=== PATIENT | female | born 1975 | race Caucasian/White ===

== ENCOUNTER 2022-06-21 11:39 | Outpatient (CLI) | payer OTHER, SELFPAY ==
[2022-06-21 10:15] LABS: Cholesterol* 165 mg/dL (90-199)
[2022-06-21 10:16] LABS: Glucose* 107 mg/dL (60-115); HDL Cholesterol* 55 mg/dL (>=50); LDL Cholesterol Calculated 94 mg/dL (<100); Triglycerides* 80 mg/dL (40-149)
[2022-06-21 11:31] LABS: Free T4 Free Thyroxine* 0.95 ng/dL (0.70-1.85)
== END 2022-06-21 11:40 | disposition home or self-care (01) ==
PROVIDERS: PCP Family Medicine; Visit Provider Family Medicine
DX: Z01.419 Encounter for gynecological examination (general) (routine) without abnormal findings (principal); E03.9 Hypothyroidism, unspecified; Z13.6 Encounter for screening for cardiovascular disorders
CPT/HCPCS: 80061; 82947; 84439; 84443

== ENCOUNTER 2022-09-16 12:50 | Outpatient (CLI) | payer OTHER, SELFPAY ==
--- NOTE | 2022-09-16 13:00 | CRLHL7_ITS ---
For Patients: As a result of the Century Cures Act, medical imaging exams and procedure reports are released immediately into your electronic medical record. You may view this report before your referring provider. If you have questions, please contact your health care provider. BILATERAL SCREENING MAMMOGRAM WITH COMPUTER-AIDED DETECTION AND TOMOSYNTHESIS TECHNIQUE: CC and MLO views were obtained. These mammographic images have been obtained using full-field digital technique. These mammographic images were interpreted with the benefit of computer-aided detection. Breast Tomosynthesis was used in this interpretation. COMPARISON FILM: 05/14/22, 05/09/20, 03/28/19. FINDINGS: The breasts are heterogeneously dense, which may obscure small masses IMPRESSION: There is no radiographic evidence for malignancy. ASSESSMENT: BI-RADS Category 2: Benign RECOMMENDATION: Routine screening mammogram in 1 year. A lay language report of this examination will be provided to the patient. Navneet Francis M.D. Diagnostic Radiologist [email or web address] DEBORAH/Dictated by: Navneet Francis MD @ 09/17/2022 11:52:00 AM (Electronically Signed)
== END 2022-09-16 12:51 | disposition home or self-care (01) ==
LOC: MAMMO 12:51
PROVIDERS: PCP Family Medicine; Visit Provider Family Medicine
DX: Z12.31 Encounter for screening mammogram for malignant neoplasm of breast (principal); R92.2 Inconclusive mammogram
CPT/HCPCS: 77063; 77067

== ENCOUNTER 2023-06-29 07:24 | Outpatient (CLI) | payer OTHER, SELFPAY | END 2023-06-29 07:25 | disposition home or self-care (01) | PROVIDERS: PCP Family Medicine; Referring Provider Family Medicine; Visit Provider Family Medicine | DX: Z00.00 Encounter for general adult medical examination without abnormal findings (principal); E03.9 Hypothyroidism, unspecified; Z13.1 Encounter for screening for diabetes mellitus | CPT/HCPCS: 82947; 84443 ==

== ENCOUNTER 2023-10-03 14:20 | Outpatient (CLI) | payer BC, SELFPAY ==
--- OUTSIDE RECORDS SUMMARY | 2023-10-03 14:24 | XMS_ITS | Clinical Summary ---
Author Name Unknown Organization [employer] [facility] [email or web address] [facility] Address [place], [place] [address] Care Team Providers Care Road Design Engineer Name Role Phone Pcp, No Primary Care Provider Unavailabl e Pcp, No Unavailable Unavailable Allergies No known active allergies Medications Medication Sig Dispensed Refills Start Date End Date Status levothyroxine (SYNTHROID) 150 mcg tablet Take 150 mcg by mouth once daily. 0 09/24/2021 Active fluticasone (50 mcg per actuation) nasal solution (FLONASE)Indications: Nasal polyps Inhale 1 [place] into affected nostril(s) once daily. 16 g 11 12/07/2021 Active Active Problems Problem Noted Date Diagnosed Date Unspecified hypothyroidism 05/07/2008 Encounters Date Type Department Care Team Description 07/28/2023 Lab Requisition [facility] [phone] Rubi Reilly MD from Last 3 Months Family History Medical History Relation Name Comments Good Health Father Diabetes Maternal Grandmother Hyperlipidemia Mother Thyroid Disease Mother hypothyroid Cancer Son leukemia Relation Name Status Comments Father Maternal Grandmother Mother Son Social History Tobacco Use Types Packs/Day Years Used Date Smoking Tobacco: Never Smokeless Tobacco: Never Tobacco Cessation:Counseling Given: Yes Alcohol Use Standard Drinks/Week Comments Yes 0 (1 standard drink = 0.6 oz pur e alcohol) Social Connections Answer Date Recorded Frequency of Communication with Friends and Fami ly Not on file 12/07/2021 Sex and Gender Information Value Date Recorded Sex Assigned at Female 12/05/2021 1:08 PM CDT Gender Identity Female 12/05/2021 1:08 PM CDT Sexual Orientation Straight 12/05/2021 1: 08 PM CDT Obstetrics History Para Term AB IAB SAB Ectopic Multiple Livin g Live Births 3 3 3 Date Outcome GA Total Labor Labor/2nd/3rd Weight Sex Delivery Anes PTL Mona A1 A5 Name Cl in Para Para Para Last Filed Vital Signs Vital Sign Reading Time Taken Comments Blood Pressure 160/87 12/01/2022 5:38 PM CDT Pulse 89 12/01/2022 5:38 PM CDT Temperature 36.9 ??C (98.4 ??F) 12/01/2022 5:38 PM CD T Respiratory Rate 21 12/01/2022 5:38 PM CDT Oxygen Saturation 98% 12/01/2022 5:38 PM CDT Inhaled Oxygen Concentration - - Weight 89.2 kg (196 lb 9.6 oz) 12/01/2022 5:38 P M CDT Height 169.5 cm (5' 6.75) 05/03/2008 2:52 PM CD T Body Mass Index - - Plan of Treatment Health Maintenance Due Date Last Done Comments Tdap 1986 Depression screening for age 12+ 1987 HIV for age 15-65 1990 BMI (ht and wt on same day) for age 18+ 1993 Hepatitis C screening for age 18-79 1993 Tetanus booster 1995 Colonoscopy through age 75 2020 Lipids for age 45-75 2020 09/17/2008, 09/17/20 08 Mammogram for age 45-75 2020 COVID-19 vaccine series ( season) 2023 08/29/2021, 11/26/2020, 10/29/2020 Influenza for age 9-49 05/20/2023 Pap test for age 21-65 07/28/2026 3, 07/28/2023, 01/09/2018, Additional history exists Pneumococcal series for age 6-64 Aged Out No longer eligible based on patient's age to complete this topic Procedures Procedure Name Priority Date/Time Associated Diagnosis Comments LAB TRACKING EVENT Routine 07/28/2023 9: 54 AM QUALITATIVE FIELD COORDINATOR SEALER DRY CELL THIN PREP PAP SCREEN IMAGED Routine 07/28/2023 9:40 AM QUALITATIVE FIELD COORDINATOR HPV THIN PREP Routine 07/28/2023 9:40 AM QUALITATIVE FIELD COORDINATOR from Last 3 Months Results * LAB TRACKING EVENT (07/28/2023 9:54 AM QUALITATIVE FIELD COORDINATOR) Other (Other) Client Collect / Unknown 07/28/2023 9:54 AM QUALITATIVE FIELD COORDINATOR 07/28/2023 3:28 PM QUALITATIVE FIELD COORDINATOR Rubi Reilly MD LAB BILL O NLY [facility] [address] [place] [address], * SEALER DRY CELL THIN PREP PAP SCREEN IMAGED (07/28/2023 9:40 AM QUALITATIVE FIELD COORDINATOR) Case Report Gynecologic Cytology Report ? Case: [id number] ? Authorizing Provider: ??Rubi Reilly ?Collected: ? 07/28/2023 0940 ? MD Mary ? Ordering Location: ? [facility] ?Received: ?07/29/2023 1238 ? First Screen: ?Pam Coronel ? Rescreen: ?Bacdavi, Diana ? Specimen: ?SEALER DRY CELL ThinPrep Vial Screening, Cervical ? 08/08/2023 2:38 PM QUALITATIVE FIELD COORDINATOR [facility] [employer] [facility]- ENTRAL LABORATORY INTERPRETATION/ RESULT NEGATIVE FOR INTRAEPITHELIAL LESION OR MALIGNANCY (NIL) (none) 08/08/2023 2:38 PM QUALITATIVE FIELD COORDINATOR [facility]- ENTRAL LABORATORY IMEN ADEQUACY Satisfactory for evaluation No endocervical component seen 08/08/2023 2:38 PM QUALITATIVE FIELD COORDINATOR [facility] [employer] [facility] ENTRAL LABORATORY HPV REQUEST HPV and PAP 08/08/2023 2:38 PM QUALITATIVE FIELD COORDINATOR [facility] [employer] [facility]- ENTRAL LABORATORY Date of LMP 07/12/2023 08/08/2023 2:38 PM QUALITATIVE FIELD COORDINATOR [facility] ENTRAL LABORATORY Last Pap Date 01/09/2018 08/08/2023 2:38 PM QUALITATIVE FIELD COORDINATOR [facility] ENTRAL LABORATORY Last Pap Result NIL 2:38 PM QUALITATIVE FIELD COORDINATOR [facility] ENTRAL LABORATORY Abnormal Pap or [place] Bx in last 5 years No 08/08/2023 2:38 PM QUALITATIVE FIELD COORDINATOR [facility]- ENTRAL LABORATORY Menstrual Status Abnormal bleeding 08/08/2023 2:38 PM QUALITATIVE FIELD COORDINATOR [facility] ENTRAL LABORATORY [place] Bx Done Today No 08/08/2023 2:38 PM QUALITATIVE FIELD COORDINATOR [facility] EN[facility]AL LABOR[facility]ORY Additional Information 08/08/2023 2:38 PM QUALITATIVE FIELD COORDINATOR [facility] EN[facility] LABORATORY Comment: Interpreted at [facility] [employer] [facility], Central Laboratory - [address], [place] [address] Automated Review Successful 08/08/2023 2:38 PM QUALITATIVE FIELD COORDINATOR [facility] ENTRAL LABORATORY Comment:Specimen processed s uccessfully by automated plastic design applier device, ThinPrep Imaging System, [employer] ANCILLARY TESTING SEALER DRY CELL HPV Ordered, Please see separate report 08/08/2023 2:38 PM QUALITATIVE FIELD COORDINATOR [facility] ENTRNE LABORATORY Note The pap test is a screening technique, not a diagnostic procedure. It is used primarily to screen for squamous cancers and precursor lesions. Published studies have shown that it is subject to both false negative and false positive results. The pap test should not be used as the sole means to diagnose or exclude pre-malignant and malignant lesions. 08/08/2023 2:38 PM QUALITATIVE FIELD COORDINATOR [facility] LABORATORY Other (Cervical) 07/28/2023 9:40 AM QUALITATIVE FIELD COORDINATOR 07/29/2023 12:38 PM QUALITATIVE FIELD COORDINATOR Rubi Reilly MD PATHOLOGY/ CYTOLOGY Performing Organization Address [facility] de Phone Number [facility] [address] [place] [address], * HPV HIGH RISK (07/28/2023 9:40 AM QUALITATIVE FIELD COORDINATOR) TYPE 16 Negative Negative 08/03/2023 1:56 PM QUALITATIVE FIELD COORDINATOR [facility] TRAL LABORATORY TYPE 18 Negative Negative 08/03/2023 1:56 PM QUALITATIVE FIELD COORDINATOR [facility] TRAL LABORATORY OTHER HIGH RISK TYPES Negative Negative 08/03/2023 1:56 PM QUALITATIVE FIELD COORDINATOR [facility] TRAL LABORATORY Other (Cervical) 07/28/2023 9:40 AM QUALITATIVE FIELD COORDINATOR 07/29/2023 12:38 PM QUALITATIVE FIELD COORDINATOR Narrative [facility] - 08/03/2023 1:56 PM QUALITATIVE FIELD COORDINATOR HPV types 16, 18, 31, 33, 35, 39, 45, 51, 52, 56, 58, 59, 66 and 68 DNA were undetectable or below the pre-set threshold. Methodology: Christian Anna 4800 HPV Test Rubi Reilly MD MICROBIOLO GY Performing Organization Address [facility] Co de Phone Number [facility] [address] [place] [address], [place] [address], [place] from Last [address] Design Engineer Relationship Specialty Start Date End Date Pcp, No . PCP - General 05/30/12 Pcp, No . 05/30/12
--- NOTE | 2023-10-03 14:40 | CRLHL7_ITS ---
For Patients: As a result of the Century Cures Act, medical imaging exams and procedure reports are released immediately into your electronic medical record. You may view this report before your referring provider. If you have questions, please contact your health care provider. BILATERAL DIGITAL SCREENING MAMMOGRAM WITH TOMOSYNTHESIS AND COMPUTER-AIDED DETECTION CLINICAL HISTORY: Routine screening exam. COMPARISON: 09/16/2022, 05/14/2021, 05/09/2020, 03/28/2019. TECHNIQUE: Digital mammogram in CC and MLO projections including computer-aided detection (CAD). Tomosynthesis utilized. BREAST COMPOSITION: The breasts are heterogeneously dense, which may obscure small masses. FINDINGS: RIGHT Breast: No suspicious findings. LEFT Breast: Focal asymmetric density the lower outer quadrant 8 cm from the nipple. IMPRESSION: LEFT breast asymmetry/mass. RECOMMENDATIONS: Additional mammographic views of the LEFT breast including 3D spot compression CC/MLO. LEFT breast ultrasound may also be required. BI-RADS Category 0: Incomplete: Need Additional Imaging Evaluation and/or Prior Mammograms for Comparison The [facility] will contact the patient for follow-up. A lay language report of this examination will be provided to the patient. Dictated by Navneet Francis MD @ 10/05/2023 10:30:15 AM jj/Dictated by: Navneet Francis MD @ 10/05/2023 10:30:00 AM (Electronically Signed)
== END 2023-10-03 14:21 | disposition home or self-care (01) ==
LOC: MAMMO 14:22
PROVIDERS: PCP Family Medicine; Visit Provider Family Medicine
DX: Z12.31 Encounter for screening mammogram for malignant neoplasm of breast (principal); R92.2 Inconclusive mammogram
CPT/HCPCS: 77063; 77067

== ENCOUNTER 2023-10-12 07:33 | Outpatient (CLI) | payer BC, SELFPAY ==
--- OUTSIDE RECORDS SUMMARY | 2023-10-12 07:35 | XMS_ITS | Clinical Summary ---
Author Name Unknown Organization [employer] [facility] [employer] [facility] Address [place], [place] [address] Care Team Providers Care Clay Shop Supervisor Name Role Phone Pcp, No Primary Care Provider Unavailabl e Pcp, No Unavailable Unavailable Allergies No known active allergies Medications Medication Sig Dispensed Refills Start Date End Date Status levothyroxine (SYNTHROID) 150 mcg tablet Take 150 mcg by mouth once daily. 0 09/24/2021 Active fluticasone (50 mcg per actuation) nasal solution (FLONASE)Indications: Nasal polyps Inhale 1 [place] into affected nostril(s) once daily. 16 g 11 12/07/2021 Active Active Problems Problem Noted Date Diagnosed Date Unspecified hypothyroidism 05/07/2008 Encounters Date Type Department Care Team Description 07/28/2023 Lab Requisition [facility] [phone] Rubi Reilly MD from Last 3 Months [...] TRACKING EVENT Routine 07/28/2023 9: 54 AM LINING VAMPER MANAGER OF IT THIN PREP PAP SCREEN IMAGED Routine 07/28/2023 9:40 AM LINING VAMPER HPV THIN PREP Routine 07/28/2023 9:40 AM LINING VAMPER from Last 3 Months Results * LAB TRACKING EVENT (07/28/2023 9:54 AM LINING VAMPER) Other (Other) Client Collect / Unknown 07/28/2023 9:54 AM LINING VAMPER 07/28/2023 3:28 PM LINING VAMPER Rubi Reilly MD LAB BILL O NLY [facility] LABOR[facility]ORY [address] [place] [address], * MANAGER OF IT THIN PREP PAP SCREEN IMAGED (07/28/2023 9:40 AM LINING VAMPER) Case Report Gynecologic Cytology Report ? Case: [id number] ? Authorizing Provider: ??Rubi Reilly ?Collected: ? 07/28/2023 0940 ? MD Mary ? Ordering Location: ? [facility] ?Received: ?07/29/2023 1238 ? First Screen: ?Pam Coronel ? Rescreen: ?Bacdavi, Diana ? Specimen: ?MANAGER OF IT ThinPrep Vial Screening, Cervical ? 08/08/2023 2:38 PM LINING VAMPER [facility] [employer] [facility]- ENTRAL LABORATORY INTERPRETATION/ RESULT NEGATIVE FOR INTRAEPITHELIAL LESION OR MALIGNANCY (NIL) (none) 08/08/2023 2:38 PM LINING VAMPER [facility]- ENTRAL LABORATORY IMEN ADEQUACY Satisfactory for evaluation No endocervical component seen 08/08/2023 2:38 PM LINING VAMPER [facility] [employer] [facility] ENTRAL LABORATORY HPV REQUEST HPV and PAP 08/08/2023 2:38 PM LINING VAMPER [facility] [employer] [facility]- ENTRAL LABORATORY Date of LMP 07/12/2023 08/08/2023 2:38 PM LINING VAMPER [facility] ENTRAL LABORATORY Last Pap Date 01/09/2018 08/08/2023 2:38 PM LINING VAMPER [facility] ENTRAL LABORATORY Last Pap Result NIL 2:38 PM LINING VAMPER [facility] ENTRAL LABORATORY Abnormal Pap or [place] Bx in last 5 years No 08/08/2023 2:38 PM LINING VAMPER [facility]- ENTRAL LABORATORY Menstrual Status Abnormal bleeding 08/08/2023 2:38 PM LINING VAMPER [facility] ENTRAL LABORATORY [place] Bx Done Today No 08/08/2023 2:38 PM LINING VAMPER [facility] EN[facility]AL LABORATORY Additional Information 08/08/2023 2:38 PM LINING VAMPER [facility] ENTRAL LABORATORY Comment: Interpreted at [facility] [employer] [facility], Central Laboratory - [address], [place] [address] Automated Review Successful 08/08/2023 2:38 PM LINING VAMPER [facility] ENTRAL LABORATORY Comment:Specimen processed s uccessfully by automated general duty nurse device, ThinPrep Imaging System, [employer] ANCILLARY TESTING MANAGER OF IT HPV Ordered, Please see separate report 08/08/2023 2:38 PM LINING VAMPER [facility] ENTRWV LABORATORY Note The pap test is a screening technique, not a diagnostic procedure. It is used primarily to screen for squamous cancers and precursor lesions. Published studies have shown that it is subject to both false negative and false positive results. The pap test should not be used as the sole means to diagnose or exclude pre-malignant and malignant lesions. 08/08/2023 2:38 PM LINING VAMPER [facility] EN[facility]WV LABORATORY Other (Cervical) 07/28/2023 9:40 AM LINING VAMPER 07/29/2023 12:38 PM LINING VAMPER Rubi Reilly MD PATHOLOGY/ CYTOLOGY Performing Organization Address [facility] de Phone Number [facility] [address] [place] [address], * HPV HIGH RISK (07/28/2023 9:40 AM LINING VAMPER) TYPE 16 Negative Negative 08/03/2023 1:56 PM LINING VAMPER [facility] TRAL LABORATORY TYPE 18 Negative Negative 08/03/2023 1:56 PM LINING VAMPER [facility] TRAL LABORATORY OTHER HIGH RISK TYPES Negative Negative 08/03/2023 1:56 PM LINING VAMPER [facility] TRAL LABORATORY Other (Cervical) 07/28/2023 9:40 AM LINING VAMPER 07/29/2023 12:38 PM LINING VAMPER Narrative [facility] - 08/03/2023 1:56 PM LINING VAMPER HPV types 16, 18, 31, 33, 35, 39, 45, 51, 52, 56, 58, 59, 66 and 68 DNA were undetectable or below the pre-set threshold. Methodology: Christian Anna 4800 HPV Test Rubi Reilly MD MICROBIOLO GY Performing Organization Address [facility] Co de Phone Number [facility] [address] [place] [address], [place] [address], [place] from Last 3 Months Care Teams Clay Shop Supervisor Relationship Specialty Start Date End Date Pcp, No . PCP - General 05/30/12 Pcp, No . 05/30/12
--- NOTE | 2023-10-12 07:45 | CRLHL7_ITS ---
For Patients: As a result of the Cures Act, medical imaging exams and procedure reports are released immediately into your electronic medical record. You may view this report before your referring provider. If you have questions, please contact your health care provider. DIGITAL DIAGNOSTIC LEFT MAMMOGRAM WITH TOMOSYNTHESIS AND COMPUTER-AIDED DETECTION LEFT BREAST ULTRASOUND CLINICAL HISTORY: LEFT breast mass/asymmetry. COMPARISON: 10/03/2023, 09/16/2022, 05/14/2021, 05/09/2020. TECHNIQUE: Digital LEFT mammogram in two projections. Tomosynthesis and CAD utilized. Real-time ultrasound imaging of LEFT breast with imaging documentation. BREAST COMPOSITION: The breast is heterogeneously dense, which may obscure small masses. FINDINGS: 3D spot compression CC/MLO LEFT breast mammogram images submitted. Decreased conspicuity of previously noted asymmetric density. No architectural distortion. No suspicious calcifications. No adenopathy. Targeted LEFT breast ultrasound performed in the lower outer quadrant at 5 o`clock 7 cm from the nipple. Normal breast tissue is present. No fibrocystic change or mass. No suspicious findings. IMPRESSION: No evidence of malignancy. RECOMMENDATIONS: Annual BILATERAL screening mammography. Results and recommendations discussed with the patient. BI-RADS Category 2: Benign A lay language report of this examination will be provided to the patient. Dictated by Navneet Francis MD @ 10/12/2023 8:51:54 AM /Dictated by: Navneet Francis MD @ 10/12/2023 8:51:00 AM (Electronically Signed)
--- NOTE | 2023-10-12 08:15 | CRLHL7_ITS ---
For Patients: As a result of the Cures Act, medical imaging exams and procedure reports are released immediately into your electronic medical record. You may view this report before your referring provider. If you have questions, please contact your health care provider. PLEASE SEE DIGITAL DIAGNOSTIC LEFT MAMMOGRAM PERFORMED SAME DAY CRL:[email or web address] landeros/Dictated by: Navneet Francis MD @ 10/12/2023 8:51:00 AM (Electronically Signed)
== END 2023-10-12 07:34 | disposition home or self-care (01) ==
PROVIDERS: PCP Family Medicine; Visit Provider Family Medicine
DX: N63.20 Unspecified lump in the left breast, unspecified quadrant (principal); R92.8 Other abnormal and inconclusive findings on diagnostic imaging of breast
CPT/HCPCS: 76642; 77065; G0279

== ENCOUNTER 2023-12-24 09:40 | Outpatient (CLI) | payer BC, SELFPAY ==
--- OUTSIDE RECORDS SUMMARY | 2023-12-24 09:42 | XMS_ITS | Clinical Summary ---
Author Name Unknown Organization [employer] [facility] [employer] [facility] Address [place], [place] [address] Care Team Providers Care Structural Analyst Name Role Phone Pcp, No Primary Care Provider Unavailabl e Pcp, No Unavailable Unavailable Allergies No known active allergies Medications Medication Sig Dispensed Refills Start Date End Date Status levothyroxine (SYNTHROID) 150 mcg tablet Take 150 mcg by mouth once daily. 09/24/2021 Active fluticasone (50 mcg per actuation) nasal solution (FLONASE)Indications: Nasal polyps Inhale 1 [place] into affected nostril(s) once daily. 16 g 11 12/07/2021 Active Active Problems Problem Noted Date Diagnosed Date Unspecified hypothyroidism 05/07/2008 Family History Medical History Relation Name Comments [...] 05/20/2023 Pap test for age 21-65 07/28/2026 , 07/28/2023, 01/09/2018, Additional history exists Pneumococcal series for age 6-64 Aged Out No longer eligible based on patient's age to complete this topic Procedures Procedure Name Priority Date/Time Associated Diagnosis Comments HPV THIN PREP Routine 07/28/2023 9:40 AM INVENTORY ASSOCIATE CHOLESTEROL,TOTAL Routine 09/17/2008 5:3 2 PM INVENTORY ASSOCIATE Screening Cholesterol Level from Last 3 Months or Most Recently Relevant to Health Maintenance Results * HPV HIGH RISK (07/28/2023 9:40 AM INVENTORY ASSOCIATE) TYPE 16 Negative Negative 08/03/2023 1:56 PM INVENTORY ASSOCIATE [facility] LABORAT[facility] TYPE 18 Negative Negative 08/03/2023 1:56 PM INVENTORY ASSOCIATE [facility] LAB[facility] OTHER HIGH RISK TYPES Negative Negative 08/03/2023 1:56 PM INVENTORY ASSOCIATE [facility] Other (Cervical) 07/28/2023 9:40 AM INVENTORY ASSOCIATE 07/29/2023 12:38 PM INVENTORY ASSOCIATE Narrative [facility] - 08/03/2023 1:56 PM INVENTORY ASSOCIATE HPV types 16, 18, 31, 33, 35, 39, 45, 51, 52, 56, 58, 59, 66 and 68 DNA were undetectable or below the pre-set threshold. Methodology: Christian Anna 4800 HPV Test Rubi Reilly MD MICROBIOLO GY [facility] [address] [place] [address], * CHOLESTEROL (09/17/2008 5:32 PM INVENTORY ASSOCIATE) CHOLESTEROL,TO CHANA 158 110 - 199 mg/dL [facility] Blood specimen (specimen) BLOOD SPECIMEN / Unknown 09/17/2008 5:32 PM INVENTORY ASSOCIATE 09/17/2008 5:27 PM INVENTORY ASSOCIATE Breann Nichole MD CHEMISTRY [facility] [address] [place] [address] from Last 3 Months or Most Recently Relevant to Health Maintenance Care Teams Structural Analyst Relationship Specialty Start Date End Date Pcp, No . PCP - General 05/30/12 Pcp, No . 05/30/12
== END 2023-12-24 09:41 | disposition home or self-care (01) ==
LOC: NFLDUCREF 09:40
PROVIDERS: PCP Family Medicine; Visit Provider Nurse Practitioner Family
DX: N39.0 Urinary tract infection, site not specified (principal); B96.20 Unspecified Escherichia coli [E. coli] as the cause of diseases classified elsewhere
CPT/HCPCS: 87070; 87086; 87186

== ENCOUNTER 2024-02-14 12:06 | Outpatient (CLI) | payer BC, SELFPAY ==
--- OUTSIDE RECORDS SUMMARY | 2024-02-14 12:14 | XMS_ITS | Clinical Summary ---
Author Organization [employer] [facility] [employer] Address [place], [place] [address] Care Team Providers Care Assistant Womens Volleyball Coach Name Role Phone Pcp, No Primary Care Provider Unavailabl e Pcp, No Unavailable Unavailable Allergies No known active allergies Medications Medication Sig Dispensed Refills Start Date End Date Status levothyroxine (SYNTHROID) 150 mcg tablet Take 150 mcg by mouth once daily. 09/24/2021 Active fluticasone (50 mcg per actuation) nasal solution (FLONASE)Indications: Nasal polyps Inhale 1 [place] into affected nostril(s) once daily. 16 g 11 12/07/2021 Active Active Problems Problem Noted Date Diagnosed Date Unspecified hypothyroidism 05/07/2008 Encounters Date Type Department Care Team Description 12/26/2023 Lab Requisition [facility] [phone] Unknown, Doctor from Last 3 Months Family History Medical [...] for age 45-75 2020 COVID-19 vaccine series (2022- season) 2023 08/29/2021, 11/26/2020, 10/29/2020 Influenza for age 9-49 05/20/2024 Pap test for age 21-65 07/28/2026 , 07/28/2023, 01/09/2018, Additional history exists Pneumococcal series for age 6-64 Aged Out No longer eligible based on patient's age to complete this topic Procedures Procedure Name Priority Date/Time Associated Diagnosis Comments REFERRAL SUSCEPTIBILITY Routine 12/24/2023 9:40 AM CDT HPV THIN PREP Routine 07/28/2023 9:40 AM SUPERVISOR DRAWING CHOLESTEROL,TOTAL Routine 09/17/2008 5:3 2 PM SUPERVISOR DRAWING Screening Cholesterol Level from Last 3 Months or Most Recently Relevant to Health Maintenance Results * (ABNORMAL) REFERRAL SUSCEPTIBILITY (12/24/2023 9:40 AM CDT) CULTURE RESULT(A) 12/27/2023 9:27 AM CDT [facility]- NTRAL LABORATORY CULTURE Streptococcus pyogenes (Beta Strep Group A) 12/27/2023 9:27 AM CDT [facility] N[facility]AL [facility] Other SPECIMEN FROM THROAT / Unknown Client Collect / Unknown 12/24/2023 9:40 AM CDT 12/26/2023 1:57 PM CDT Narrative Organism Antibiotic Method Susceptibility Streptococcus pyogenes (Beta Strep Group A) PENICILLIN <=0.06: S Streptococcus pyogenes (Beta Strep Group A) CEFTRIAXON E <=0.12: S Streptococcus pyogenes (Beta Strep Group A) ERYTHROMYC IN <=0.12: S Streptococcus pyogenes (Beta Strep Group A) CLINDAMYCI N <=0.25: S Streptococcus pyogenes (Beta Strep Group A) VANCOMYCIN 0.5: S Streptococcus pyogenes (Beta Strep Group A) AMPICILLIN <=0.25: S Streptococcus pyogenes (Beta Strep Group A) CLARITHROM YCIN S Doctor Unknown MICROBIOLOGY [facility] [address] [place] [address], * HPV HIGH RISK (07/28/2023 9:40 AM SUPERVISOR DRAWING) TYPE 16 Negative Negative 08/03/2023 1:56 PM SUPERVISOR DRAWING [facility] TRAL LAB[facility] TYPE 18 Negative Negative 08/03/2023 1:56 PM SUPERVISOR DRAWING [facility] TRAL LAB[facility] OTHER HIGH RISK TYPES Negative Negative 08/03/2023 1:56 PM SUPERVISOR DRAWING [facility] TRAL [facility] Other (Cervical) 07/28/2023 9:40 AM SUPERVISOR DRAWING 07/29/2023 12:38 PM SUPERVISOR DRAWING Narrative [facility] - 08/03/2023 1:56 PM SUPERVISOR DRAWING HPV types 16, 18, 31, 33, 35, 39, 45, 51, 52, 56, 58, 59, 66 and 68 DNA were undetectable or below the pre-set threshold. Methodology: Christian Anna 4800 HPV Test Rubi Reilly MD MICROBIOLO GY [facility] [address] [place] [address], * CHOLESTEROL (09/17/2008 5:32 PM SUPERVISOR DRAWING) CHOLESTEROL,TO CHANA 158 110 - 199 mg/dL [facility] Blood specimen (specimen) BLOOD SPECIMEN / Unknown 09/17/2008 5:32 PM SUPERVISOR DRAWING 09/17/2008 5:27 PM SUPERVISOR DRAWING Breann Nichole MD CHEMISTRY Performing Organization Address City/[facility]/ZIP Co de Phone Number [facility] [address] [place] [address] from Last 3 Months or Most Recently Relevant to Health Maintenance Care Teams Assistant Womens Volleyball Coach Relationship Specialty Start Date End Date Pcp, No . PCP - General 05/30/12 Pcp, No . 05/30/12
== END 2024-02-14 12:07 | disposition home or self-care (01) ==
LOC: NFLDREF 12:06
PROVIDERS: PCP Family Medicine; Visit Provider Surgery
DX: R10.11 Right upper quadrant pain (principal)
CPT/HCPCS: 80076

== ENCOUNTER 2024-02-16 08:04 | Outpatient (CLI) | payer BC, SELFPAY ==
--- OUTSIDE RECORDS SUMMARY | 2024-02-16 08:06 | XMS_ITS | Clinical Summary ---
Author Organization [email or web address] [facility] [employer] [facility] Address [place], [place] [address] Care Team Providers Care Pulmonology Technician Name Role Phone Pcp, No Primary Care Provider Unavailabl e Pcp, No Unavailable Unavailable Allergies No known active allergies Medications Medication Sig Dispensed Refills Start Date End Date Status levothyroxine (SYNTHROID) 150 mcg tablet Take 150 mcg by mouth once daily. 09/24/2021 Active fluticasone (50 mcg per actuation) nasal solution (FLONASE)Indications: Nasal polyps Inhale 1 [place] into affected nostril(s) once daily. 16 g 11 12/07/2021 Active Active Problems Problem Noted Date Diagnosed Date Unspecified hypothyroidism 05/07/2008 Encounters Date Type Department Care Team Description 12/26/2023 Lab Requisition [facility] [phone] Unknown, Doctor from Last 3 Months Family [...] HPV THIN PREP Routine 07/28/2023 9:40 AM ASSISTANT SURVEYOR CHOLESTEROL,TOTAL Routine 09/17/2008 5:3 2 PM ASSISTANT SURVEYOR Screening Cholesterol Level from Last 3 Months or Most Recently Relevant to Health Maintenance Results * (ABNORMAL) REFERRAL SUSCEPTIBILITY (12/24/2023 9:40 AM CDT) CULTURE RESULT(A) 12/27/2023 9:27 AM CDT [facility]- NTRAL LABORATORY CULTURE Streptococcus pyogenes (Beta Strep Group A) 12/27/2023 9:27 AM CDT [facility] N[facility] LAB[facility] Other SPECIMEN FROM THROAT / [...] A) CLARITHROM YCIN S Doctor Unknown MICROBIOLOGY [facility] [address] [place] [address], * HPV HIGH RISK (07/28/2023 9:40 AM ASSISTANT SURVEYOR) TYPE 16 Negative Negative 08/03/2023 1:56 PM ASSISTANT SURVEYOR [facility] TRAL LABOR[facility] TYPE 18 Negative Negative 08/03/2023 1:56 PM ASSISTANT SURVEYOR [facility] TRAL LAB[facility] OTHER HIGH RISK TYPES Negative Negative 08/03/2023 1:56 PM ASSISTANT SURVEYOR [facility] TRAL LAB[facility] Other (Cervical) 07/28/2023 9:40 AM ASSISTANT SURVEYOR 07/29/2023 12:38 PM ASSISTANT SURVEYOR Narrative [facility] - 08/03/2023 1:56 PM ASSISTANT SURVEYOR HPV types 16, 18, 31, 33, 35, 39, 45, 51, 52, 56, 58, 59, 66 and 68 DNA were undetectable or below the pre-set threshold. Methodology: Christian Anna 4800 HPV Test Rubi Reilly MD MICROBIOLO GY [facility] [address] [place] [address], * CHOLESTEROL (09/17/2008 5:32 PM ASSISTANT SURVEYOR) CHOLESTEROL,TO CHANA 158 110 - 199 mg/dL [facility] Blood specimen (specimen) BLOOD SPECIMEN / Unknown 09/17/2008 5:32 PM ASSISTANT SURVEYOR 09/17/2008 5:27 PM ASSISTANT SURVEYOR Breann Nichole MD CHEMISTRY Performing Organization Address City/[facility]/ZIP Co de Phone Number [facility] [address] [place] [address] from Last 3 Months or Most Recently Relevant to Health Maintenance Care Teams Pulmonology Technician Relationship Specialty Start Date End Date Pcp, No . PCP - General 05/30/12 Pcp, No . 05/30/12
--- NOTE | 2024-02-16 08:15 | CRLHL7_ITS ---
For Patients: As a result of the Century Cures Act, medical imaging exams and procedure reports are released immediately into your electronic medical record. You may view this report before your referring provider. If you have questions, please contact your health care provider. INDICATION: Right upper quadrant pain COMPARISON: none TECHNIQUE: Real time west scale imaging and color Doppler analysis was performed of the right upper quadrant. FINDINGS: The patient`s liver is of normal size and has uniform echogenicity. The liver measures 15.4 cm. There is a normal appearance of the hepatic IVC and proximal abdominal aorta. There is no evidence of ascites. The gallbladder is of normal size and there is no evidence of intraluminal stones or sludge. The gallbladder wall measures 2 mm in thickness. The common bile duct is of normal size and measures 2.4 mm in diameter at the level of the alejandro hepatis. The pancreas appears normal. There is no evidence of a stone or hydronephrosis within the right kidney. The right kidney measures 9.9 cm in length. Periumbilical hernia is present with a fascial defect measuring 7 millimeters. The hernia itself measures 8 x 15 millimeters. IMPRESSION: Periumbilical hernia is present with a fascial defect measuring 7 millimeters and the hernia measuring 15 millimeters. Remainder of the right upper quadrant ultrasound normal. Dictated by Navneet Francis MD @ 02/16/2024 10:44:18 AM (Electronically Signed)
== END 2024-02-16 08:05 | disposition home or self-care (01) ==
LOC: US 08:05
PROVIDERS: PCP Family Medicine; Referring Provider Surgery; Visit Provider Family Medicine
DX: R10.11 Right upper quadrant pain (principal); K42.9 Umbilical hernia without obstruction or gangrene
CPT/HCPCS: 76705

== ENCOUNTER 2024-03-06 11:44 | Outpatient (CLI) | payer BC, SELFPAY ==
--- OUTSIDE RECORDS SUMMARY | 2024-03-06 11:46 | XMS_ITS | Clinical Summary ---
Author Organization [employer] [facility] [employer] [facility] Address [place], [place] [address] Care Team Providers Care Plant Technician Name Role Phone Pcp, No Primary Care Provider Unavailabl e Pcp, No Unavailable Unavailable Allergies No known active allergies Medications Medication Sig Dispensed Refills Start Date End Date Status levothyroxine (SYNTHROID) 150 mcg tablet Take 150 mcg by mouth once daily. 09/24/2021 Active fluticasone (50 mcg per actuation) nasal solution (FLONASE)Indications: Nasal polyps Inhale 1 [place] into affected nostril(s) once daily. 16 g 11 12/07/2021 Active Active Problems Problem Noted Date Diagnosed Date Unspecified hypothyroidism 05/07/2008 Encounters Date Type Department Care Team Description 12/26/2023 Lab Requisition [facility] [phone] Unknown, Doctor from Last 3 Months Family [...] Outcome GA Total Labor Labor/2nd/3rd Weight Sex Type Anes PTL Mona A1 A5 Name Clin Para Para Para Last Filed Vital Signs [...] 05/20/2024 Pap test for age 21-65 07/28/2026 3, 07/28/2023, 01/09/2018, Additional history exists Pneumococcal series for age 6-64 Aged Out No longer eligible based on patient's age to complete this topic Procedures Procedure Name Priority Date/Time Associated Diagnosis Comments REFERRAL SUSCEPTIBILITY Routine 12/24/2023 9:40 AM CDT HPV THIN PREP Routine 07/28/2023 9:40 AM SALES REPRESENTATIVE CHOLESTEROL,TOTAL Routine 09/17/2008 5:3 2 PM SALES REPRESENTATIVE Screening Cholesterol Level from Last 3 Months or Most Recently Relevant to Health Maintenance Results * (ABNORMAL) REFERRAL SUSCEPTIBILITY (12/24/2023 9:40 AM CDT) CULTURE RESULT(A) 12/27/2023 9:27 AM CDT [facility]- NTRAL LABORATORY CULTURE Streptococcus pyogenes (Beta Strep Group A) 12/27/2023 9:27 AM CDT [facility] N[facility] LAB[facility] Other SPECIMEN FROM THROAT [...] A) CLARITHROM YCIN S Doctor Unknown MICROBIOLOGY [facility] [address] [place] [address], * HPV HIGH RISK (07/28/2023 9:40 AM SALES REPRESENTATIVE) TYPE 16 Negative Negative 08/03/2023 1:56 PM SALES REPRESENTATIVE [facility] TRAL LABORATORY TYPE 18 Negative Negative 08/03/2023 1:56 PM SALES REPRESENTATIVE [facility] TRAL LAB[facility] OTHER HIGH RISK TYPES Negative Negative 08/03/2023 1:56 PM SALES REPRESENTATIVE [facility] TRAL [facility] Other (Cervical) 07/28/2023 9:40 AM SALES REPRESENTATIVE 07/29/2023 12:38 PM SALES REPRESENTATIVE Narrative [facility] - 08/03/2023 1:56 PM SALES REPRESENTATIVE HPV types 16, 18, 31, 33, 35, 39, 45, 51, 52, 56, 58, 59, 66 and 68 DNA were undetectable or below the pre-set threshold. Methodology: Christian Anna 4800 HPV Test Rubi Reilly MD MICROBIOLO GY [facility]AL LABORATORY [address] [place] [address], * CHOLESTEROL (09/17/2008 5:32 PM SALES REPRESENTATIVE) CHOLESTEROL,TO CHANA 158 110 - 199 mg/dL [facility] Blood specimen (specimen) BLOOD SPECIMEN / Unknown 09/17/2008 5:32 PM SALES REPRESENTATIVE 09/17/2008 5:27 PM SALES REPRESENTATIVE Breann Nichole MD CHEMISTRY Performing Organization Address City/[facility]/ZIP Co de Phone Number [facility] [address] [place] [address] from Last 3 Months or Most Recently Relevant to Health Maintenance Care Teams Plant Technician Relationship Specialty Start Date End Date Pcp, No . PCP - General 05/30/12 Pcp, No . 05/30/12
--- NOTE | 2024-03-06 12:00 | CRLHL7_ITS ---
For Patients: As a result of the Century Cures Act, medical imaging exams and procedure reports are released immediately into your electronic medical record. You may view this report before your referring provider. If you have questions, please contact your health care provider. Indication: Right upper quadrant pain Technique: Nuclear medicine hepatobiliary scan with gallbladder ejection fraction per protocol after the intravenous administration of 5.4 millicuries technetium 99 M Mebrofenin and 1.7 micrograms of CCK. Patient`s symptoms were reproduced after CCK. Comparison: Abdominal ultrasound February 16, 2024 Findings: Normal hepatic extraction and excretion of the radiopharmaceutical with prompt appearance of the common bile duct followed by the gallbladder and then the small-bowel. No enterogastric reflux. After CCK visually there is decreased gallbladder contraction. Calculated gallbladder ejection fraction is 10 percent. Impression: Gallbladder dysfunction Dictated by Anthony Osborne MD @ 03/06/2024 1:47:12 PM (Electronically Signed)
== END 2024-03-06 11:45 | disposition home or self-care (01) ==
LOC: NM 11:45
PROVIDERS: PCP Family Medicine; Visit Provider Surgery
DX: R10.11 Right upper quadrant pain (principal); K82.9 Disease of gallbladder, unspecified
CPT/HCPCS: 78227; A9537; J2805

== ENCOUNTER 2024-03-26 07:55 | Day surgery (SDC) | payer BC, SELFPAY ==
[2024-03-26] VITALS (14 sets, daily range): BP systolic 110–142; BP diastolic 59–75; PULSE 44–63; RESP 17–21; TEMP 36.1–36.6; O2SAT 96–98; BMI 30.1
[2024-03-26] MEDS: LACTATED RINGERS 1000 ML 1,000 ML 100 ML IV (06:05)
--- OUTSIDE RECORDS SUMMARY | 2024-03-26 07:58 | XMS_ITS | Clinical Summary ---
Author Organization [employer] [facility] [employer] Address [place], [place] [address] Care Team Providers Care Manager Life Insurance Name Role Phone Pcp, No Primary Care Provider Unavailabl e Pcp, No Unavailable Unavailable Allergies No known active allergies Medications Medication Sig Dispensed Refills Start Date End Date Status levothyroxine (SYNTHROID) 150 mcg tablet Take 150 mcg by mouth once daily. 09/24/2021 Active fluticasone (50 mcg per actuation) nasal solution (FLONASE)Indications: Nasal polyps Inhale 1 [place] into affected nostril(s) once daily. 16 g [...] HPV THIN PREP Routine 07/28/2023 9:40 AM BALL MILL MIXER CHOLESTEROL,TOTAL Routine 09/17/2008 5:3 2 PM BALL MILL MIXER Screening Cholesterol Level from Last 3 Months or Most Recently Relevant to Health Maintenance Results * HPV HIGH RISK (07/28/2023 9:40 AM BALL MILL MIXER) TYPE 16 Negative Negative 08/03/2023 1:56 PM BALL MILL MIXER [facility] TYPE 18 Negative Negative 08/03/2023 1:56 PM BALL MILL MIXER [facility] OTHER HIGH RISK TYPES Negative Negative 08/03/2023 1:56 PM BALL MILL MIXER [facility] Other (Cervical) 07/28/2023 9:40 AM BALL MILL MIXER 07/29/2023 12:38 PM BALL MILL MIXER Narrative [facility] - 08/03/2023 1:56 PM BALL MILL MIXER HPV types 16, 18, 31, 33, 35, 39, 45, 51, 52, 56, 58, 59, 66 and 68 DNA were undetectable or below the pre-set threshold. Methodology: Christian Anna 4800 HPV Test Rubi Reilly MD MICROBIOLO GY [facility] [address] [place] [address], * CHOLESTEROL (09/17/2008 5:32 PM BALL MILL MIXER) CHOLESTEROL,TO CHANA 158 110 - 199 mg/dL [facility] Blood specimen (specimen) BLOOD SPECIMEN / Unknown 09/17/2008 5:32 PM BALL MILL MIXER 09/17/2008 5:27 PM BALL MILL MIXER Breann Nichole MD CHEMISTRY [facility] [address] [place] [address] from Last 3 Months or Most Recently Relevant to Health Maintenance Care Teams Manager Life Insurance Relationship Specialty Start Date End Date Pcp, No . PCP - General 05/30/12 Pcp, No . 05/30/12
--- NOTE | 2024-03-26 08:14 | SUR.PREOP ---
Pt signed refusal of lab for urine hcg states no way possible she could be
[2024-03-26] MEDS: SODIUM CHLORIDE 0.9 % (FLUSH) 10 ML SYRINGE IVF (08:37)
--- NOTE | 2024-03-26 08:44 | P.GSOP_ITS ---
Operative Note Date of procedure: 03/26/24 Pre-op diagnosis: 1. Biliary dyskinesia 2. Recurrent epigastric hernia Post-op diagnosis: Same Type of Procedure: 1. Laparoscopic cholecystectomy 2. Open repair recurrent epigastric hernia with Ukrainian cheese defect, measuring a total of 2 cm, with Phasix mesh Indications: The patient is a 40-year-old female who has had approximately 1 year of recurrent right-sided abdominal pain. She did have an epigastric hernia repair in 2019. She felt as though it possibly may have recurred. Right upper q uadrant ultrasound was normal but did show a small fat containing hernia. HIDA scan was then obtained which showed an ejection fraction of 10%. After discussion of options she elected to proceed with cholecystectomy and possible hernia repair. Procedure Description: After discussing the risks and benefits of the procedure, the patient signed informed consent.? The operative site was marked and the patient was brought to the operating room and placed on the operating table in supine position.? Care was taken to pad the patient's pressure points.?? The patient was then intubated by anesthesia.?? The operative site was then prepped and draped in the usual sterile fashion.? A time-out was then performed. Entrance to the abdomen was gained via a 5 mm Visiport in the left upper quadrant. The abdomen was insufflated and briefly surveyed for signs of injury. There was none. The abdominal wall was examined. Ultrasound noted a 7 mm periumbilical hernia. There was a fair amount of preperitoneal fat above the umbilicus, however I was able to visualize sutures from a prior repair. There was a small hernia noted here just to the left of midline. I elected to place my 10 mm port through this opening. The patient's prior incision was used to make the incision. The patient was then placed in reverse Trendelenburg position with the right side up. The gallbladder fundus was grasped and retracted cephalad. A small amount of dissection was needed to free omental adhesions from the gallbladder. The infundibulum was grasped. A combination of hook cautery and blunt dissection was used to carefully dissect out the cystic duct and artery until they could clearly be seen entering the gallbladder without any intervening structures. The gallbladder was dissected off the cystic plate to achieve the critical view. Once this was achieved the cystic duct and artery were each clipped with 2 clips proximally and 1 clip distally and transec juliocesar with the scissors. The gallbladder was then taken off of the liver bed and removed from the abdomen using an Endo-Catch bag. The gallbladder bed was surveyed for hemostasis which appeared adequate. I then turned my attention to the hernia repair. I elected to repair this in an open fashion. The abdomen was desufflated and the ports were removed. I incised the prior incision. It was necessary to make the fascial defect slightly larger to facilitate mesh placement. The patient and I had discussed that since this was a recurrence I recommended mesh placement, but that I would use a bio-absorbable mesh rather than permanent mesh given the clean contaminated nature of the hernia. This was fixed at the time of gallbladder surgery as the patient was feeling to be fairly symptomatic from the hernia recurrence. I began by taking down the preperitoneal fat using cautery. I did this on either side of the fascial opening. I did note another small hernia defect on the right side as well as on the left side. These were 5 mm defects. There was preperitoneal fat herniated through these openings. It is unclear as to whether not these defects were recurrent. Once I created a space above the preperitoneal fat, I obtained a piece of Phasix ST mesh. This was longer than was necessary so it was trimmed slightly to be 6 cm. This was then placed in the preperitoneal space. 2-0 PDS suture that was then used to secure the mesh circumferentially. This was pulled up to the abdominal wall to ensure that it laid flat. I did reinsert the left upper quadrant port under direct vision and pulled on the suture to ensure that the mesh laid flat. The sutures were then tied. The abdomen was desufflated. The smaller hernia defects on the right and the left had been covered by the mesh, however the opening on the left side was closed with an 0 Vicryl [id number] suture. The right side had been closed with the trans fascial mesh suture. I then used an 0 Vicryl suture to close the fascia the mesh in a running fashion. Local anesthetic was injected into the skin and subcutaneous tissue around the port sites and the midline incision. The midline incision was closed with 3-0 Vicryl dermal suture and 4-0 Monocryl running subcuticular suture. The port sites were closed with 4-0 Monocryl. Sterile dressings were then applied. Instrument sponge and needle counts were correct at the end of the case. The patient was then woken and transferred to the PACU in stable condition. The patient tolerated the procedure well. Findings: 1. Small amount of omental adhesions to the gallbladder. 2. Likely recurrent 1 cm epigastric hernia with 2 additional Ukrainian-cheese defects inferior to this measuring 5 mm [facility]: Steph Fernandez MD Estimated blood loss (mL): 10 Specimen: Gallbladder Condition: stable Disposition: PACU
[2024-03-26] MEDS: LACTATED RINGERS 1000 ML 1,000 ML 75 ML IV (08:45)
[2024-03-26] MEDS: CEFAZOLIN 2 GM INJ IVP (09:34)
--- NOTE | 2024-03-26 10:21 | W.ANESCHARGE ---
Anesthesia Charges Start Date/Time Anesthesia Start Date: 03/26/24 Anesthesia Start Time: 09:24 Stop Date/Time Anesthesia Stop Date: 03/26/24 Anesthesia Stop Time: 11:19
[2024-03-26] MEDS: BUPIVACAINE 0.25% 30 ML INJECTION (10:55)
--- NOTE | 2024-03-26 11:27 | W.ANESCHARGE ---
Anesthesia Charges Start Date/Time Anesthesia Start Date: 03/26/24 Anesthesia Start Time: 09:24 Stop Date/Time Anesthesia Stop Date: 03/26/24 Anesthesia Stop Time: 11:19
--- NOTE | 2024-03-26 11:42 | SUR.PHASEI ---
Patient meets discharge criteria from PACU
[2024-03-26] MEDS: HYDROCODONE-ACETAMIN 5-325 MG 1 TAB PO (12:09)
== END 2024-03-26 13:31 | disposition home or self-care (01) ==
LOC: OR 07:56
PROVIDERS: PCP Family Medicine; Visit Provider Surgery
PROC: 0FT44ZZ Resection of Gallbladder, Percutaneous Endoscopic Approach (ICD-10-PCS; CPT 47562; principal; 2024-03-26 09:15)
PROC: (CPT 47562; 2024-03-26 09:15)
DX: K81.1 Chronic cholecystitis (principal); K82.8 Other specified diseases of gallbladder; K43.2 Incisional hernia without obstruction or gangrene
CPT/HCPCS: 47562; 49613; 00790; 88304; A9270; C1781; J0665; J0690; J1100; J1170; J1200; J1885; J2250; J2405; J2704; J2710; J2765; J3010; J7120

== ENCOUNTER 2024-06-28 07:40 | Outpatient (CLI) | payer BC, SELFPAY ==
--- OUTSIDE RECORDS SUMMARY | 2024-06-29 12:37 | XMS_ITS | Clinical Summary ---
Author Organization [facility] Address [place], [place] [address] Care Team Providers Care Senior Account Manager Name Role Phone Pcp, No Primary Care Provider Unavailabl e Pcp, No Unavailable Unavailable Allergies No known active allergies Medications Medication Sig Dispensed Refills Start Date End Date Status levothyroxine (SYNTHROID) 150 mcg tablet Take 150 mcg by mouth once daily. 09/24/2021 Active fluticasone (50 mcg per actuation) nasal solution (FLONASE)Indications: Nasal polyps Inhale 1 [place] into affected nostril(s) once daily. 16 g [...] for age 45-75 2020 COVID-19 vaccine series (2023- season) 2024 08/29/2021, 11/26/2020, 10/29/2020 Influenza for age 9-49 05/20/2024 Pap test for age 21-65 07/28/2026 , 07/28/2023, 01/09/2018, Additional history exists Pneumococcal series for age 6-64 Aged Out No longer eligible based on patient's age to complete this topic Procedures Procedure Name Priority Date/Time Associated Diagnosis Comments HPV HIGH RISK Routine 07/28/2023 9:40 AM CIVIL ENGINEER'S AIDE CHOLESTEROL,TOTAL Routine 09/17/2008 5:3 2 PM CIVIL ENGINEER'S AIDE Screening Cholesterol Level from Last 3 Months or Most Recently Relevant to Health Maintenance Results * HPV HIGH RISK (07/28/2023 9:40 AM CIVIL ENGINEER'S AIDE) TYPE 16 Negative Negative 08/03/2023 1:56 PM CIVIL ENGINEER'S AIDE [facility] TYPE 18 Negative Negative 08/03/2023 1:56 PM CIVIL ENGINEER'S AIDE [facility] OTHER HIGH RISK TYPES Negative Negative 08/03/2023 1:56 PM CIVIL ENGINEER'S AIDE [facility] Other (Cervical) 07/28/2023 9:40 AM CIVIL ENGINEER'S AIDE 07/29/2023 12:38 PM CIVIL ENGINEER'S AIDE Narrative [facility] - 08/03/2023 1:56 PM CIVIL ENGINEER'S AIDE HPV types 16, 18, 31, 33, 35, 39, 45, 51, 52, 56, 58, 59, 66 and 68 DNA were undetectable or below the pre-set threshold. Methodology: Christian Anna 4800 HPV Test Rubi Reilly MD MICROBIOLO GY [facility] [address] [place] [address], * CHOLESTEROL (09/17/2008 5:32 PM CIVIL ENGINEER'S AIDE) CHOLESTEROL,TO CHANA 158 110 - 199 mg/dL [facility] Blood specimen (specimen) BLOOD SPECIMEN / Unknown 09/17/2008 5:32 PM CIVIL ENGINEER'S AIDE 09/17/2008 5:27 PM CIVIL ENGINEER'S AIDE Breann Nichole MD CHEMISTRY [facility] [address] [place] [address] from Last 3 Months or Most Recently Relevant to Health Maintenance Care Teams Senior Account Manager Relationship Specialty Start Date End Date Pcp, No . PCP - General 05/30/12 Pcp, No . 05/30/12
== END 2024-06-28 07:41 | disposition home or self-care (01) ==
LOC: NFLDREF 06-29 12:34
PROVIDERS: PCP Family Medicine; Referring Provider Family Medicine; Visit Provider Family Medicine
DX: E03.9 Hypothyroidism, unspecified (principal); Z13.220 Encounter for screening for lipoid disorders; Z13.228 Encounter for screening for other metabolic disorders
CPT/HCPCS: 80053; 80061; 84439; 84443

== ENCOUNTER 2024-08-28 15:53 | Outpatient (CLI) | payer BC, SELFPAY | END 2024-08-28 15:54 | disposition home or self-care (01) | LOC: NFLDREF 08-29 10:46 | PROVIDERS: PCP Family Medicine; Referring Provider Family Medicine; Visit Provider Family Medicine | DX: E03.9 Hypothyroidism, unspecified (principal) | CPT/HCPCS: 84443 ==

== ENCOUNTER 2024-10-08 08:59 | Outpatient (CLI) | payer BC, SELFPAY ==
--- NOTE | 2024-10-08 09:15 | CRLHL7_ITS ---
For Patients: As a result of the Century Cures Act, medical imaging exams and procedure reports are released immediately into your electronic medical record. You may view this report before your referring provider. If you have questions, please contact your health care provider. BILATERAL SCREENING MAMMOGRAM WITH COMPUTER-AIDED DETECTION AND TOMOSYNTHESIS TECHNIQUE: CC and MLO views were obtained. These mammographic images have been obtained using full-field digital technique. These mammographic images were interpreted with the benefit of computer-aided detection. Breast Tomosynthesis was used in this interpretation. COMPARISON FILM: 10/03/23, 09/16/22, 05/14/21. FINDINGS: The breasts are heterogeneously dense, which may obscure small masses. IMPRESSION: There is no radiographic evidence for malignancy. ASSESSMENT: BI-RADS Category 1: Negative RECOMMENDATION: Routine screening mammogram in 1 year. A lay language report of this examination will be provided to the patient. Tima Garza M.D. Diagnostic/Nuclear Medicine Radiologist [email or web address] SP/Dictated by: Tima Garza MD @ 10/10/2024 11:56:00 AM (Electronically Signed)
== END 2024-10-08 09:00 | disposition home or self-care (01) ==
LOC: MAMMO 08:59
PROVIDERS: PCP Family Medicine; Visit Provider Family Medicine
DX: Z12.31 Encounter for screening mammogram for malignant neoplasm of breast (principal); R92.333 Mammographic heterogeneous density, bilateral breasts
CPT/HCPCS: 77063; 77067

== ENCOUNTER 2025-05-21 19:51 | Inpatient (IN) | payer BC, SELFPAY ==
--- OUTSIDE RECORDS SUMMARY | 2025-05-21 19:53 | XMS_ITS | Clinical Summary ---
Author Organization [facility] Address [address] [place] [id number] Care Team Providers Care Air Route Traffic Controller Name Role Phone Pcp, No Primary Care Provider Unavailabl e Pcp, No Unavailable Unavailable Allergies No known active allergies Medications levothyroxine (SYNTHROID) 150 mcg tablet Take 150 mcg by mouth once daily. 09/24/2021 Active fluticasone (50 mcg per actuation) nasal solution (FLONASE)Indica tions:Nasal polyps Inhale 1 [place] into affected nostril(s) once daily. 16 g [...] and Fami ly Not on file 12/07/2021 Comments Unknown Sex and Gender Information Value Date Recorded Sex Assigned at Female 12/05/2021 1:08 PM CDT Legal Sex Female 7:24 PM CDT Gender Identity Female 12/05/2021 1:08 [...] 89 12/01/2022 5:38 PM CDT Temperature 36.9 C (98.4 F) 12/01/2022 5:38 PM CDT Respiratory Rate 21 12/01/2022 5:38 PM CDT Oxygen Saturation 98% 12/01/2022 5:38 PM CDT Inhaled Oxygen Concentration - - Weight 89.2 kg (196 lb 9.6 oz) 12/01/2022 5:38 P M CDT Height 169.5 cm (5' 6.75) 05/03/2008 2:52 PM CD T Body Mass Index - - Plan of Treatment Health Maintenance Due Date Last Done Comments Tetanus booster 1986 Depression screening for age 12+ 1987 HIV for age 15-65 1990 BMI (ht and wt on same day) for age 18+ 1993 Hepatitis C screening for ag e 18-79 1993 Hepatitis B series for 19+ ( 1 of 3 - 19+ 3-dose series) 1994 Colonoscopy through age 75 2020 Lipids for age 45-75 2020 09/17/2008, 09/17/20 08 Mammogram for age 45-75 2020 COVID-19 vaccine series (2023- season) 2024 08/29/2021, 11/26/2020, 10/29/2020 Pneumococcal series for age 50+ (1 of 1 - PCV) 2025 Zoster (shingles) series for age 50+ (1 of 2) 2025 Influenza Vaccine (#1) 2025 Pap test for age 21-65 07/28/2026 , 07/28/2023, 01/09/2018, Additional history exists Procedures Procedure Name Priority Date/Time Associated Diagnosis Comments HPV HIGH RISK Routine 07/28/2023 9:40 AM BENCH SHEAR OPERATOR CHOLESTEROL,TOTAL Routine 09/17/2008 5:3 2 PM BENCH SHEAR OPERATOR Screening Cholesterol Level from Last 3 Months or Most Recently Relevant to Health Maintenance Results * HPV HIGH RISK (07/28/2023 9:40 AM BENCH SHEAR OPERATOR) TYPE 16 Negative Negative 08/03/2023 1:56 PM BENCH SHEAR OPERATOR [facility] TYPE 18 Negative Negative 08/03/2023 1:56 PM BENCH SHEAR OPERATOR [facility] OTHER HIGH RISK TYPES Negative Negative 08/03/2023 1:56 PM BENCH SHEAR OPERATOR [facility] Other (Cervical) 07/28/2023 9:40 AM BENCH SHEAR OPERATOR 07/29/2023 12:38 PM BENCH SHEAR OPERATOR Narrative [facility] - 08/03/2023 1:56 PM BENCH SHEAR OPERATOR HPV types 16, 18, 31, 33, 35, 39, 45, 51, 52, 56, 58, 59, 66 and 68 DNA were undetectable or below the pre-set threshold. Methodology: Christian Anna 4800 HPV Test Rubi Reilly MD MICROBIOLOGY Fi nal Result [facility] [address] [place] [address], * CHOLESTEROL (09/17/2008 5:32 PM BENCH SHEAR OPERATOR) CHOLESTEROL,TO CHANA 158 110 - 199 mg/dL [facility] Blood specimen (specimen) BLOOD SPECIMEN / Unknown 09/17/2008 5:32 PM BENCH SHEAR OPERATOR 09/17/2008 5:27 PM BENCH SHEAR OPERATOR Breann Nichole MD CHEMISTRY Final Result [facility] [address] [place] [address] from Last 3 Months or Most Recently Relevant to Health Maintenance Insurance [employer] Care Teams Air Route Traffic Controller Relationship Specialty Start Date End Date Pcp, No . PCP - General 05/30/12 Pcp, No . 05/30/12
[2025-05-21 19:56] VITALS: BP 170/95; PULSE 71; RESP 20; TEMP 36.2; O2SAT 99; BMI 28.7
[2025-05-21 20:35] LABS: Lactate* 1.1 mmol/L (0.5-1.9)
[2025-05-21 20:52] LABS: Chloride* 97 mmol/L (96-114); Potassium* 3.4 mmol/L (3.6-5.1); Sodium* 134 mmol/L (135-149)
[2025-05-21 20:55] LABS: Anion Gap 19 mEq/L (7-15); Blood Urea Nitrogen* 12 mg/dL (7-30); Calcium* 9.6 mg/dL (8.4-10.6); Carbon Dioxide* 18 mmol/L (20-32); Creatinine* 0.6 mg/dL (0.5-1.5); Est. Creatinine Clearance* 105.01; Estimated Glomerular Filt Rate 109 ml/min; Glucose* 337 mg/dL (60-115)
--- NOTE | 2025-05-21 20:56 | ED.GENADULT ---
HPI - General Adult General Date Seen: 05/21/25 Chief complaint: Diabetic Related Problem Stated complaint: dehydration, from urgent care Time Seen by Provider: 05/21/25 20:56 History of Present Illness HPI narrative: 50-year-old female with a history of hypothyroidism, endometriosis, Referred from the urgent care [facility] for evaluation of a 2 history of dry mouth, urinary frequency. Also blurry vision, brain fog, shakiness, anxiety (no history of anxiety). She has been losing weight. She has no history of diabetes but today at urgent care blood sugar was 341 and ketones were ?high. ?. Per nurse from Urgent Care she had presented with fatigue, tiredness, urinary frequency, dry mouth. No abdominal pain or flank pain. Labs from Urgent Care showed a white count of 5.7, hemoglobin 12.1, platelet count 312. Sodium 134, potassium 3.4, chloride 97, bicarb 18, anion gap 19, BUN 12, creatinine 0.6, glucose 337, venous lactic 1.1, calcium 9.6. Urinalysis showed 2+ glucose and 4+ ketones. Patient reports that for the past couple of weeks she has been little bit off. She has been feeling little bit shaky, sometimes dizzy. Along with that she has had thirst and a lot of urination. Despite everything she drink she has a dry mouth. For the past several days she has been noting that she is losing weight. Also for the past couple of days she has developed bilaterally blurry vision. No fevers. No chest pain. No palpitations. No abdominal pain. No nausea vomiting. No diarrhea. Other than frequency, urination has been normal. No dysuria or hematuria. Related Data Home Medications ?Medication ?Instructions ?Recorded ?Confirmed doxycycline hyclate 100 mg capsule 100 mg PO DAILY 05/21/25 05/21/25 Previous Rx's ?Medication ?Instructions ?Recorded levothyroxine 150 mcg tablet 150 mcg PO QDAY #90 tabs 09/05/24 levothyroxine 25 mcg tablet 25 mcg PO QDAY #30 tabs 09/05/24 estradiol 0.05 mg-norethindrone 1 patch transdermal 2XW #8 ea 03/19/25 0.14 mg/24 hr semiwkly transderm patch Allergies Allergy/AdvReac Type Severity Reaction Status Date / Time No Known Drug Allergies Allergy Verified 05/21/25 20:13 [facility] Medical History (Updated 05/21/25 @ 23:27 by Corinna Oliveros MD) Abdominal wall hernia ?K43.9 - Ventral hernia without obstruction or gangrene (ICD-10) Serrated adenoma of colon ?D12.6 - Benign neoplasm of colon, unspecified (ICD-10) Menometrorrhagia ?N92.1 - Excessive and frequent menstruation with irregular cycle (ICD-10) Pruritus ani ?L29.0 - Pruritus ani (ICD-10) Goiter ?E04.9 - Nontoxic goiter, unspecified (ICD-10) Endometriosis determined by laparoscopy ?N80.9 - Endometriosis, unspecified (ICD-10) History of ovarian cyst (05/02/09) ?Z87.42 - Personal history of other diseases of the female genital tract (ICD-10) Surgical History (Updated 10/14/23 @ 09:25 by Ofelia Rodriguez~[employer]MING [employer]) History of section (05/02/09) ?Z98.891 - History of uterine scar from previous surgery (ICD-10) History of laparoscopy ?Z98.890 - Other specified postprocedural states (ICD-10) Status post ovarian cystectomy ?Z98.890 - Other specified postprocedural states (ICD-10) ?Z87.42 - Personal history of other diseases of the female genital tract (ICD-10) Status post dilation and curettage (07/03/19) ?Z98.890 - Other specified postprocedural states (ICD-10) History of umbilical hernia repair (04/05/19) ?Z98.890 - Other specified postprocedural states (ICD-10) ?Z87.19 - Personal history of other diseases of the digestive system (ICD-10) History of tubal ligation (05/02/09) ?Z98.51 - Tubal ligation status (ICD-10) Social History (Updated 03/19/25 @ 08:27 by Mer Asif ~ 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 What is your current living situation?: I presently have a place to live Problems where you live: no known problems Problems where you live details: NA In the past 12 months, utilities in danger of being shut off: no In past 12 months, lack of transportation kept you from medical appts, meetings, work, or getting things needed for daily living: no In the past 12 mos, have been you worried that your food would run out before you had money to buy more?: never true In the past 12 mos, the food you bought just didn't last and you didn't have money to buy more?: never true Highest level of school completed/degree received: Bachelor's degree Smoking Status: Former smoker Do you use any of these nicotine containing products: None How often do you have a drink containing alcohol: monthly or less Alcohol type: beer and wine How many standard drinks containing alcohol do you have on a typical day: 1 or 2 How often do you have six or more drinks on one occasion: Never AUDIT-C Alcohol total score: 1 Non-prescribed substance use: denies use Caffeine: Yes (coffee) How often does anyone, including family, friends and others, physically hurt you: never How often does anyone, including family, friends and others, insult or talk down to you: never How often does anyone, including family, friends and others, threaten you with harm: never How often does anyone, including family, friends and others, scream or curse at you: never Are you using contraception or practicing any form of control: No service: No Exam Narrative: Exam Narrative: Constitutional: Appears well-developed and well-nourished. Alert. Conversant. Non toxic. HENT: Head: Atraumatic. Nose: Nose normal. Mouth/Throat: Oral mucosa is clear but dry. no trismus. Pharynx normal. Tonsils symmetric. No tonsillar enlargement, erythema, or exudate. Eyes: Conjunctivae normal. EOM normal. Pupils equal, round, and reactive to light. No scleral icterus. Neck: Normal range of motion. Neck supple. No tracheal deviation present. Cardiovascular: Normal rate, regular rhythm. No gallop. No friction rub. No murmur heard. Symmetric radial artery pulses Pulmonary/Chest: Effort normal. No stridor. No respiratory distress. No wheezes. No rales. No rhonchi . No tenderness. Abdominal: Soft. No distension. No mass. No tenderness. No rebound. No guarding. Musculoskeletal: RUE: Normal range of motion. No tenderness. No deformity LUE: Normal range of motion. No tenderness. No deformity RLE: Normal range of motion. No edema. No tenderness. No deformity LLE: Normal range of motion. No edema. No tenderness. No deformity Neurological: Alert and oriented to person, place, and time. Normal strength. CN II-VII intact. No sensory deficit. GCS eye subscore is 4. GCS verbal subscore is 5. GCS motor subscore is 6. Normal coordination Skin: Skin is warm and dry. No rash noted. No pallor. Normal capillary refill. Psychiatric: Normal mood. Normal affect. Polite. Const: Vital Signs, click to edit/add: Vital Signs - 24 hr 05/21/25 19:56 05/21/25 22:31 05/21/25 22:44 Temperature 97.1 F L 97.9 F Pulse Rate 74 Pulse Rate [Right Pulse Oximeter] 71 Respiratory Rate 20 18 Blood Pressure 129/88 Blood Pressure [Ri ght Upper Arm] 170/95 H Pulse Oximetry 99 98 Oxygen Delivery Me thod Room Air Course Vital Signs Vital signs: Initial Vital Signs Temperature 97.1 F L 05/21/25 19:56 Temperature Source Temporal Artery Scan 05/21/25 19:56 Pulse Rate 71 05/21/25 19:56 Pulse Rhythm Regular 05/21/25 19:56 Pulse Strength 3+ Normal 05/21/25 19:56 Respiratory Rate 20 05/21/25 19:56 Blood Pressure 170/95 H 05/21/25 19:56 Blood Pressure Mean 120 H 05/21/25 19:56 Blood Pressure Position Sitting 05/21/25 19:56 Pulse Oximetry 99 05/21/25 19:56 Oxygen Delivery Method Room Air 05/21/25 19:56 Vital Signs Temperature 97.1 F L 05/21/25 19:56 Pulse Rate 71 05/21/25 19:56 Respiratory Rate 20 05/21/25 19:56 Blood Pressure 170/95 H 05/21/25 19:56 Pulse Oximetry 99 05/21/25 19:56 Oxygen Delivery Method Room Air 05/21/25 19:56 Temperature 97.5 F L 05/22/25 00:27 Pulse Rate 57 L 05/22/25 01:06 Respiratory Rate 16 05/22/25 00:27 Blood Pressure 141/90 H 05/22/25 00:27 Pulse Oximetry 99 05/22/25 00:27 Oxygen Delivery Method Room Air 05/22/25 00:27 Medications Administered Medications: Generic Name Dose Route Start Last Admin Trade Name Prabhjot PRN Reason Stop Dose Admin Potassium Chloride/Sodium Chloride 1,000 mls @ 250 mls/hr 05/21/25 23:55 05/22/25 00:40 0.9 % Sodium Ch + Kcl 20 Meq/L IV Not Given .Q4H BRIANA Discontinued Medications Generic Name Dose Route Start Last Admin Trade Name Prabhjot PRN Reason Stop Dose Admin Sodium Chloride 1,000 mls @ 1,000 mls/hr 05/21/25 21:15 05/21/25 21:24 0.9 % Sodium Chloride 1000 Ml IV 05/21/25 22:14 Infused .Q1H BRIANA Infusion Potassium Chloride/Sodium Chloride 1,000 mls @ 250 mls/hr 05/21/25 21:35 05/21/25 23:11 0.9 % Sodium Ch + Kcl 20 Meq/L IV 250 mls/hr .Q4H BRIANA Administration Potassium Chloride 10 meq in 100 mls @ 100 mls/hr 05/21/25 21:32 05/21/25 23:08 Potassium Chloride IVPB 05/21/25 22:31 Infused ONCE ONE Infusion Sodium Chloride 1,000 mls @ 1,000 mls/hr 05/21/25 21:45 05/21/25 23:07 0.9 % Sodium Chloride 1000 Ml IV 05/21/25 22:44 Infused .Q1H BRIANA Infusion Sodium Chloride 1,000 mls @ 1,000 mls/hr 05/21/25 22:00 05/21/25 21:59 0.9 % Sodium Chloride 1000 Ml IV 05/21/25 22:59 Not Given .Q1H BRIANA Sodium Chloride 1,000 mls @ 1,000 mls/hr 05/21/25 22:00 05/21/25 21:58 0.9 % Sodium Chloride 1000 Ml IV 05/21/25 22:59 Not Given .Q1H BRIANA Insulin Glargine 10 unit 05/22/25 01:01 05/22/25 01:13 Insulin Glargine,Hum.Rec.Anlog 100 Unit/Ml Insuln.Pen SUBCUT 05/22/25 01:02 10 unit ONCE ONE Administration Potassium Bicarbonate 50 meq 05/21/25 21:32 05/21/25 21:49 Potassium Bicarb 25 Meq Effervescent Tab PO 05/21/25 21:33 50 meq ONCE ONE Administration Medical Decision Making MDM Narrative Medical decision making narrative: 50-year-old female referred to the ER from urgent care today with concern for new onset diabetes. She has had symptoms retrograde double to diabetes for the past couple of weeks including dizziness, malaise, polyuria, polydipsia, dry mouth, blurry vision, weight loss. Blood sugar from urgent care was 340. Labs here in the ER confirm hyperglycemia, widened anion gap, metabolic acidosis with pH of 7.28. This is concerning for diabetic ketoacidosis. Fortunately, no signs of cerebral edema, or hemodynamic instability. She does seem to have adequate ability for respiratory compensation at this time. Initial treatment was with rehydration with saline, 2 L given here in the ER. Other labs show hyponatremia of 134 which is probably related to her hyperglycemia. She also has hypokalemia with potassium of 3.4. This was supplemented here in the ER with oral and IV potassium. Plan will be to admit to the hospitalist service to the CCU. She will start on insulin drip after her potassium is repleted to a safe level. Discussed with our hospitalist, Dr. Oliveros. She came to the ER to evaluate this patient. Discussed again with Dr. Oliveros at the time that she was completing her potassium infusion. At this point the nurses in the critical care unit were ready for her. Therefore will transfer her to the CCU. Dr. Oliveros will follow-up on her repeat BMP to make sure her potassium is improving. She will be started on insulin drip in the CCU. Cause for the new onset diabetes and DKA is unclear. No clear evidence for infection, acute coronary ischemia. She is not having any abdominal pain to suggest pancreatitis. test is negative. Lab Data Labs: Lab Results 05/21/25 05/21/25 05/21/25 Range/Units 20:30 20:30 20:30 VBG pH 7.288 L (7.32-7.43) VBG pCO2 43 (40-50) mmHG VBG pO2 31.3 (25-47) mmHG VBG HCO3 20 L (21-28) mmol/L Sodium 134 L Cancelled (135-149) mmol/L Potassium 3.4 L Cancelled (3.6-5.1) mmol/L Chloride 97 (96-114) mmol/L Carbon Dioxide (20-32) mmol/L Anion Gap (7-15) mEq/L BUN (7-30) mg/dL Creatinine (0.5-1.5) mg/dL Estimated Creat Clear Estimated GFR ml/min Glucose (60-115) mg/dL Lactate (0.5-1.9) mmol/L Calcium (8.4-10.6) mg/dL Phosphorus (2.5-4.5) mg/dL Magnesium (1.5-2.6) mg/dL Total Bilirubin (0.1-1.5) mg/dL AST (12-35) U/L ALT (4-35) U/L Alkaline Phosphatase (40-150) U/L Total Protein (6.0-8.3) g/dL Albumin (3.3-5.0) g/dL Lipase (23-300) U/L Urine Color (Yellow) Urine Appearance (Clear) Urine pH (5.0-8.5) Ur Specific [place] (1.000-1.030) Urine Protein (Negative) Urine Glucose (UA) (Negative) Urine Ketones (Negative) Urine Blood (Negative) Urine Nitrite (Negative) Urine Bilirubin (Negative) Urine Urobilinogen (0.2-1.0) Ur Leukocyte Esterase (Negative) Urine HCG, Qual (Negative) 05/21/25 05/21/25 05/21/25 Range/Units 20:30 20:30 20:30 VBG pH (7.32-7.43) VBG pCO2 (40-50) mmHG VBG pO2 (25-47) mmHG VBG HCO3 (21-28) mmol/L Sodium (135-149) mmol/L Potassium (3.6-5.1) mmol/L Chloride Cancelled (96-114) mmol/L Carbon Dioxide 18 L Cancelled (20-32) mmol/L Anion Gap 19 H Cancelled (7-15) mEq/L BUN 12 (7-30) mg/dL Creatinine (0.5-1.5) mg/dL Estimated Creat Clear Estimated GFR ml/min Glucose (60-115) mg/dL Lactate (0.5-1.9) mmol/L Calcium (8.4-10.6) mg/dL Phosphorus (2.5-4.5) mg/dL Magnesium (1.5-2.6) mg/dL Total Bilirubin (0.1-1.5) mg/dL AST (12-35) U/L ALT (4-35) U/L Alkaline Phosphatase (40-150) U/L Total Protein (6.0-8.3) g/dL Albumin (3.3-5.0) g/dL Lipase (23-300) U/L Urine Color (Yellow) Urine Appearance (Clear) Urine pH (5.0-8.5) Ur Specific [place] (1.000-1.030) Urine Protein (Negative) Urine Glucose (UA) (Negative) Urine Ketones (Negative) Urine Blood (Negative) Urine Nitrite (Negative) Urine Bilirubin (Negative) Urine Urobilinogen (0.2-1.0) Ur Leukocyte Esterase (Negative) Urine HCG, Qual (Negative) 05/21/25 05/21/25 05/21/25 Range/Units 20:30 20:30 20:30 VBG pH (7.32-7.43) VBG pCO2 (40-50) mmHG VBG pO2 (25-47) mmHG VBG HCO3 (21-28) mmol/L Sodium (135-149) mmol/L Potassium (3.6-5.1) mmol/L Chloride (96-114) mmol/L Carbon Dioxide (20-32) mmol/L Anion Gap (7-15) mEq/L BUN Cancelled (7-30) mg/dL Creatinine 0.6 Cancelled (0.5-1.5) mg/dL Estimated Creat Clear 105.01 Cancelled Estimated GFR 109 ml/min Glucose (60-115) mg/dL Lactate (0.5-1.9) mmol/L Calcium (8.4-10.6) mg/dL Phosphorus (2.5-4.5) mg/dL Magnesium (1.5-2.6) mg/dL Total Bilirubin (0.1-1.5) mg/dL AST (12-35) U/L ALT (4-35) U/L Alkaline Phosphatase (40-150) U/L Total Protein (6.0-8.3) g/dL Albumin (3.3-5.0) g/dL Lipase (23-300) U/L Urine Color (Yellow) Urine Appearance (Clear) Urine pH (5.0-8.5) Ur Specific [place] (1.000-1.030) Urine Protein (Negative) Urine Glucose (UA) (Negative) Urine Ketones (Negative) Urine Blood (Negative) Urine Nitrite (Negative) Urine Bilirubin (Negative) Urine Urobilinogen (0.2-1.0) Ur Leukocyte Esterase (Negative) Urine HCG, Qual (Negative) 05/21/25 05/21/25 05/21/25 Range/Units 20:30 20:30 20:30 VBG pH (7.32-7.43) VBG pCO2 (40-50) mmHG VBG pO2 (25-47) mmHG VBG HCO3 (21-28) mmol/L Sodium (135-149) mmol/L Potassium (3.6-5.1) mmol/L Chloride (96-114) mmol/L Carbon Dioxide (20-32) mmol/L Anion Gap (7-15) mEq/L BUN (7-30) mg/dL Creatinine (0.5-1.5) mg/dL Estimated Creat Clear Estimated GFR Cancelled ml/min Glucose 337 H Cancelled (60-115) mg/dL Lactate 1.1 (0.5-1.9) mmol/L Calcium 9.6 Cancelled (8.4-10.6) mg/dL Phosphorus 3.3 (2.5-4.5) mg/dL Magnesium (1.5-2.6) mg/dL Total Bilirubin (0.1-1.5) mg/dL AST (12-35) U/L ALT (4-35) U/L Alkaline Phosphatase (40-150) U/L Total Protein (6.0-8.3) g/dL Albumin (3.3-5.0) g/dL Lipase (23-300) U/L Urine Color (Yellow) Urine Appearance (Clear) Urine pH (5.0-8.5) Ur Specific [place] (1.000-1.030) Urine Protein (Negative) Urine Glucose (UA) (Negative) Urine Ketones (Negative) Urine Blood (Negative) Urine Nitrite (Negative) Urine Bilirubin (Negative) Urine Urobilinogen (0.2-1.0) Ur Leukocyte Esterase (Negative) Urine HCG, Qual (Negative) 05/21/25 05/21/25 Range/Units 20:30 23:10 VBG pH (7.32-7.43) VBG pCO2 (40-50) mmHG VBG pO2 (25-47) mmHG VBG HCO3 (21-28) mmol/L Sodium 136 (135-149) mmol/L Potassium 4.1 (3.6-5.1) mmol/L Chloride 107 (96-114) mmol/L Carbon Dioxide 17 L (20-32) mmol/L Anion Gap 12 (7-15) mEq/L BUN 9 (7-30) mg/dL Creatinine 0.6 (0.5-1.5) mg/dL Estimated Creat Clear 105.01 Estimated GFR 109 ml/min Glucose 253 H (60-115) mg/dL Lactate (0.5-1.9) mmol/L Calcium 8.1 L (8.4-10.6) mg/dL Phosphorus Cancelled (2.5-4.5) mg/dL Magnesium 1.7 (1.5-2.6) mg/dL Total Bilirubin 0.7 (0.1-1.5) mg/dL AST 30 (12-35) U/L ALT 23 (4-35) U/L Alkaline Phosphatase 86 (40-150) U/L Total Protein 7.7 (6.0-8.3) g/dL Albumin 4.8 (3.3-5.0) g/dL Lipase 18 L (23-300) U/L Urine Color Yellow (Yellow) Urine Appearance Clear (Clear) Urine pH 5.0 (5.0-8.5) Ur Specific [place] <= 1.005 (1.000-1.030) Urine Protein Negative (Negative) Urine Glucose (UA) 3+ A (Negative) Urine Ketones 4+ A (Negative) Urine Blood Negative (Negative) Urine Nitrite Negative (Negative) Urine Bilirubin Negative (Negative) Urine Urobilinogen 0.2 (0.2-1.0) Ur Leukocyte Esterase Negative (Negative) Urine HCG, Qual Negative (Negative) ECG Data Attestation: I personally reviewed and interpreted this ECG as follows: Interpretation: Sinus bradycardia Rate 56 MS interval 138 Normal QRS axis Nonspecific T-wave flattening in leads V2-V4. No ST segment elevation or depression. No U waves. QT 426, QTC 411 Discharge Plan Discharge Clinical Impression: DKA (diabetic ketoacidosis), Diabetes mellitus, new onset, Acute hypokalemia Patient Disposition: Admitted As Inpatient Procedures ABG Interpretation ABG Results: 05/21/25 20:30 VBG pH 7.288 L VBG pCO2 43 VBG pO2 31.3 VBG HCO3 20 L
[2025-05-21 21:16] LABS: Albumin* 4.8 g/dL (3.3-5.0); pH VBG 7.288 (7.32-7.43)
[2025-05-21 21:17] LABS: HCO3 VBG 20 mmol/L (21-28); PCO2 VBG 43 mmHG (40-50); PO2 VBG 31.3 mmHG (25-47)
[2025-05-21 21:19] LABS: Alanine Aminotransferase* 23 U/L (4-35); Alkaline Phosphatase* 86 U/L (40-150); Aspartate Amino Transferase* 30 U/L (12-35); Bilirubin Total* 0.7 mg/dL (0.1-1.5); Total Protein* 7.7 g/dL (6.0-8.3)
[2025-05-21] MEDS: POTASSIUM BICARB 25 MEQ EFFERVESCENT TAB 50 MEQ PO (21:49)
[2025-05-21] MEDS: POTASSIUM CHLORIDE 10 MEQ/100 ML PIGGYBACK 100 MEQ IVPB (22:02)
[2025-05-21 22:17] LABS: Appearance Urine Clear (Clear)
[2025-05-21 22:18] LABS: Ur HCG Qualitative* Negative (Negative)
[2025-05-21 22:31] VITALS: BP 129/88; PULSE 74; RESP 18; O2SAT 98
[2025-05-21 22:44] VITALS: TEMP 36.6
[2025-05-21] MEDS: 0.9 % SODIUM CH + KCL 20 mEq/L 1,000 ML 250 ML IV (23:11)
--- NOTE | 2025-05-21 23:19 | PM.IMHP1 ---
Assessment and Plan Assessment and plan (1) DKA (diabetic ketoacidosis): Problem comment: Patient was started on IV fluids at the ED, plan is to give a total of 2 L of bolus IV fluids, increase potassium by giving both oral and IV replacement and then start her on an insulin drip with DKA protocol while giving her maintenance IV fluid (0.45% saline) with potassium at the rate of 250 mL/hour. - POC glucose q.1 hour - BMP Q 2 hours x3 - if glucose drops below 200, then we need to change her maintenance IV fluid from (0.45% saline) with potassium to D5W/0.45% with potassium at a rate of 250 mL/hour. - once anion gap closes, need to continue the drip for 1-2 hours and then start patient on subcutaneous insulin glargine + order diet for the patient Status: Acute (2) Acute hypokalemia: Problem comment: Need to replace prior to starting the insulin drip, Per protocol. Insulin if potassium is below 3.4 Call the physician if potassium goes above 5.3 Status: Acute (3) Diabetes mellitus, new onset: Problem comment: - Ordered Hb A1c, TSH - once anion gap closes, need to continue the drip for 1-2 hours and then start patient on subcutaneous insulin glargine + order diet for the patient - patient will need to discuss with primary care physician the workup for new onset diabetes including labs to diagnose type 1 versus type 2. Will need a vision exam in addition to controlling her blood sugar optimally with regular followups with PCP Status: Acute (4) Hypothyroidism: Problem comment: - Ordered Hb A1c, TSH - resume levothyroxine Status: Acute Total Time Spent Total Time Spent: Time spent: Today I spent 75 minutes seeing the patient, discussing the patient with ER staff, reviewing [facility]panse and EPIC notes/diagnostics, discussing the care plan with our care time that includes social work, PT/OT, pharmacy, RT, residential and documenting my impressions and plan in the medical record. Hospitalist- H&P: HPI History of Present Illness Date Seen: 05/21/25 Chief complaint: dehydration, high glucose Narrative: Denia Tee is a 50 year old female with past medical history of hypothyroidism who presents to the ED C/o fatigue, dry mouth, urinary frequency & blurry vision. Pt doesn't have history of diabetes but today at urgent care blood sugar was 341 with elevated ketones. patient denies fever, abdominal pain and denies history diabetes. At the ED, patient was hemodynamically stable. Labs are showing low potassium at 3.4, anion gap of 19, VBG pH of 7.28, in addition to positive ketones in the urine. Patient was started on IV fluids at the ED, plan is to give a total of 2 L of bolus IV fluids, increase potassium by giving both oral and IV replacement and then start her on an insulin drip with DKA protocol while giving her maintenance IV fluid (0.45% saline) with potassium at the rate of 250 mL/hour. Review of Systems Status of ROS: Reports: 6 or more systems reviewed and unremarkable except as noted in History and below Medical Decision Making Medical Decision Making Has patient completed a Health Care Directive: No PFSH PFS Medical History (Updated 05/21/25 @ 23:27 by Corinna Oliveros MD) Abdominal wall hernia ?K43.9 - Ventral hernia without obstruction or gangrene (ICD-10) Serrated adenoma of colon ?D12.6 - Benign neoplasm of colon, unspecified (ICD-10) Menometrorrhagia ?N92.1 - Excessive and frequent menstruation with irregular cycle (ICD-10) Pruritus ani ?L29.0 - Pruritus ani (ICD-10) Goiter ?E04.9 - Nontoxic goiter, unspecified (ICD-10) Endometriosis determined by laparoscopy ?N80.9 - Endometriosis, unspecified (ICD-10) History of ovarian cyst (05/02/09) ?Z87.42 - Personal history of other diseases of the female genital tract (ICD-10) Surgical History (Updated 10/14/23 @ 09:25 [facility] History of section (05/02/09) ?Z98.891 - History of uterine scar from previous surgery (ICD-10) History of laparoscopy ?Z98.890 - Other specified postprocedural states (ICD-10) Status post ovarian cystectomy ?Z98.890 - Other specified postprocedural states (ICD-10) ?Z87.42 - Personal history of other diseases of the female genital tract (ICD-10) Status post dilation and curettage (07/03/19) ?Z98.890 - Other specified postprocedural states (ICD-10) History of umbilical hernia repair (04/05/19) ?Z98.890 - Other specified postprocedural states (ICD-10) ?Z87.19 - Personal history of other diseases of the digestive system (ICD-10) History of tubal ligation (05/02/09) ?Z98.51 - Tubal ligation status (ICD-10) Social History (Updated 03/19/25 @ 08:27 by Mer Asif ~ 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 What is your current living situation?: I presently have a place to live Problems where you live: no known problems In the past 12 months, utilities in danger of being shut off: no In past 12 months, lack of transportation kept you from medical appts, meetings, work, or getting things needed for daily living: no In the past 12 mos, have been you worried that your food would run out before you had money to buy more?: never true In the past 12 mos, the food you bought just didn't last and you didn't have money to buy more?: never true Smoking Status: Former smoker Do you use any of these nicotine containing products: None How often do you have a drink containing alcohol: monthly or less Alcohol type: beer and wine How many standard drinks containing alcohol do you have on a typical day: 1 or 2 How often do you have six or more drinks on one occasion: Never AUDIT-C Alcohol total score: 1 Non-prescribed substance use: denies use Caffeine: Yes (coffee) How often does anyone, including family, friends and others, physically hurt you: never How often does anyone, including family, friends and others, insult or talk down to you: never How often does anyone, including family, friends and others, threaten you with harm: never How often does anyone, including family, friends and others, scream or curse at you: never Are you using contraception or practicing any form of control: No Meds Home Medications and Allergies Home Medications ?Medication ?Instructions ?Recorded ?Confirmed ?Type levothyroxine 150 mcg tablet 150 mcg PO QDAY #90 tabs 09/05/24 05/21/25 Rx levothyroxine 25 mcg tablet 25 mcg PO QDAY #30 tabs 09/05/24 05/21/25 Rx estradiol 0.05 mg-norethindrone 1 patch transdermal 2XW #8 ea 03/19/25 05/21/25 Rx 0.14 mg/24 hr semiwkly transderm patch doxycycline hyclate 100 mg capsule 100 mg PO DAILY 05/21/25 05/21/25 History Allergies Allergy/AdvReac Type Severity Reaction Status Date / Time No Known Drug Allergies Allergy Verified 05/21/25 20:13 Exam Narrative: Exam Narrative: Physical exam GENERAL: Comfortable, no acute distress. HEAD AND NECK: Atraumatic, normocephalic CARDIOVASCULAR: RRR. Normal S1, S2. No murmurs. RESPIRATORY: Clear to auscultation B/L. Good air entry B/L. No wheezes or rhonchi. GASTROINTESTINAL: Not distended, not tender to palpation. NEUROLOGY: Alert, awake, oriented X 3. Normal speech. PSYCH: Normal mood, normal affect. Const: Vital Signs, click to edit/add: Vital Signs - 24 hr 05/21/25 19:56 05/21/25 22:31 05/21/25 22:44 Temperature 97.1 F L 97.9 F Pulse Rate 74 Pulse Rate [Right Pulse Oximeter] 71 Respiratory Rate 20 18 Blood Pressure 129/88 Blood Pressure [Ri ght Upper Arm] 170/95 H Pulse Oximetry 99 98 Oxygen Delivery Me thod Room Air Hospitalist - H&P: Result Labs Labs: BMP 05/21/25 05/21/25 05/21/25 20:30 20:30 20:30 Sodium 134 L Cancelled Potassium 3.4 L Cancelled Chloride 97 Carbon Dioxide BUN Creatinine Glucose Calcium 05/21/25 05/21/25 05/21/25 20:30 20:30 20:30 Sodium Potassium Chloride Cancelled Carbon Dioxide 18 L Cancelled BUN 12 Cancelled Creatinine 0.6 Glucose Calcium 05/21/25 05/21/25 05/21/25 20:30 20:30 20:30 Sodium Potassium Chloride Carbon Dioxide BUN Creatinine Cancelled Glucose 337 H Cancelled Calcium 9.6 Cancelled Liver Function 05/21/25 Range/Units 20:30 Total Bilirubin 0.7 (0.1-1.5) mg/dL AST 30 (12-35) U/L ALT 23 (4-35) U/L Alkaline Phosphatase 86 (40-150) U/L Albumin 4.8 (3.3-5.0) g/dL Urine 05/21/25 Range/Units 20:30 Urine Color Yellow (Yellow) Urine Appearance Clear (Clear) Urine pH 5.0 (5.0-8.5) Ur Specific [place] <= 1.005 (1.000-1.030) Urine Protein Negative (Negative) Urine Glucose (UA) 3+ A (Negative)
[2025-05-21 23:29] LABS: Chloride* 107 mmol/L (96-114); Potassium* 4.1 mmol/L (3.6-5.1); Sodium* 136 mmol/L (135-149)
[2025-05-21 23:32] LABS: Anion Gap 12 mEq/L (7-15); Blood Urea Nitrogen* 9 mg/dL (7-30); Carbon Dioxide* 17 mmol/L (20-32); Creatinine* 0.6 mg/dL (0.5-1.5); Est. Creatinine Clearance* 105.01; Estimated Glomerular Filt Rate 109 ml/min
[2025-05-21 23:33] LABS: Calcium* 8.1 mg/dL (8.4-10.6); Glucose* 253 mg/dL (60-115)
[2025-05-22] VITALS (11 sets, daily range): BP systolic 112–141; BP diastolic 76–90; PULSE 57–68; RESP 16–18; TEMP 36.4–36.7; O2SAT 96–99; BMI 28.4
--- NOTE | 2025-05-22 01:21 | PC.NURSE ---
Pt came to floor @ 2335. BG was 246. Dr ordered no insulin ggt at this time. Wanted to give 8u Reg Ins. Marty changed that order to Lantus 10u. Pt remains CCU and BG is being checked Q1. BMP drawn at 0130. Watching for anion gap change.
[2025-05-22 01:33] LABS: Chloride* 108 mmol/L (96-114); Potassium* 4.2 mmol/L (3.6-5.1); Sodium* 136 mmol/L (135-149)
[2025-05-22 01:36] LABS: Blood Urea Nitrogen* 7 mg/dL (7-30); Creatinine* 0.5 mg/dL (0.5-1.5); Est. Creatinine Clearance* 126.01; Estimated Glomerular Filt Rate 114 ml/min
[2025-05-22 01:37] LABS: Anion Gap 12 mEq/L (7-15); Calcium* 8.1 mg/dL (8.4-10.6); Carbon Dioxide* 16 mmol/L (20-32); Glucose* 237 mg/dL (60-115)
[2025-05-22 03:22] LABS: Chloride* 110 mmol/L (96-114); Potassium* 4.1 mmol/L (3.6-5.1); Sodium* 136 mmol/L (135-149)
[2025-05-22 03:25] LABS: Anion Gap 10 mEq/L (7-15); Blood Urea Nitrogen* 7 mg/dL (7-30); Calcium* 7.9 mg/dL (8.4-10.6); Carbon Dioxide* 16 mmol/L (20-32); Creatinine* 0.5 mg/dL (0.5-1.5); Est. Creatinine Clearance* 126.01; Estimated Glomerular Filt Rate 114 ml/min; Glucose* 229 mg/dL (60-115)
[2025-05-22] MEDS: 0.9 % SODIUM CH + KCL 20 mEq/L 1,000 ML 250 ML IV (03:30)
[2025-05-22 05:32] LABS: Chloride* 110 mmol/L (96-114); Potassium* 4.2 mmol/L (3.6-5.1); Sodium* 136 mmol/L (135-149)
[2025-05-22 05:34] LABS: Blood Urea Nitrogen* 7 mg/dL (7-30); Creatinine* 0.5 mg/dL (0.5-1.5); Est. Creatinine Clearance* 126.01; Estimated Glomerular Filt Rate 114 ml/min
[2025-05-22 05:35] LABS: Anion Gap 10 mEq/L (7-15); Calcium* 7.8 mg/dL (8.4-10.6); Carbon Dioxide* 16 mmol/L (20-32); Glucose* 206 mg/dL (60-115)
[2025-05-22] MEDS: LEVOTHYROXINE 25 MCG TABLET PO (05:59)
[2025-05-22] MEDS: LEVOTHYROXINE 75 MCG TABLET 150 MCG PO (05:59)
--- NOTE | 2025-05-22 06:15 | PC.NURSE ---
Pt BG was in the low 200s all night with 0600 ck being 194. Pt anion gap 10. K 4.2. ggt was never started per Dr instructions. VS were unremarkable. Zero pain. No N/V.
[2025-05-22 07:32] LABS: Chloride* 109 mmol/L (96-114); Potassium* 4.0 mmol/L (3.6-5.1); Sodium* 137 mmol/L (135-149)
[2025-05-22 07:35] LABS: Anion Gap 9 mEq/L (7-15); Blood Urea Nitrogen* 6 mg/dL (7-30); Calcium* 8.2 mg/dL (8.4-10.6); Carbon Dioxide* 19 mmol/L (20-32); Creatinine* 0.5 mg/dL (0.5-1.5); Est. Creatinine Clearance* 126.01; Estimated Glomerular Filt Rate 114 ml/min; Glucose* 184 mg/dL (60-115)
[2025-05-22 07:55] LABS: Albumin* 3.7 g/dL (3.3-5.0)
[2025-05-22 08:01] LABS: Lab Add On Test New Spec Needed
[2025-05-22 08:36] LABS: HCO3 VBG 20 mmol/L (21-28); PCO2 VBG 40 mmHG (40-50); PO2 VBG 34.2 mmHG (25-47); pH VBG 7.302 (7.32-7.43)
[2025-05-22] MEDS: SODIUM CHLORIDE 0.9 % (FLUSH) 10 ML SYRINGE 5 ML IVF (08:46)
[2025-05-22 09:01] LABS: Appearance Urine Clear (Clear)
--- NOTE | 2025-05-22 09:15 | CRLHL7_ITS ---
For Patients: As a result of the Century Cures Act, medical imaging exams and procedure reports are released immediately into your electronic medical record. You may view this report before your referring provider. If you have questions, please contact your health care provider. Indication: Abdominal pain Technique: Sonography of the abdomen was performed. The study is limited to the structures discussed below. Grayscale imaging was provided. Color Doppler was performed as was limited spectral evaluation of the main portal vein. Comparison: None Findings: The liver is normal in size and echogenicity without focal mass. The liver measures 14.3 centimeters. No intrahepatic biliary ductal dilation. The gallbladder is surgically absent. The common duct measures 7 millimeters which is minimally prominent. This might be reservoir phenomena associated with prior cholecystectomy. The right kidney is normal in size and appearance measuring 9.1 x 4.5 x 5.4 centimeters. The main portal vein is patent with appropriate direction of flow. Normal waveform Impression: 1. The liver appears normal. 2. The gallbladder is surgically absent. 3. The common bile duct is minimally prominent at 7 millimeters. This might be reservoir phenomena associated with prior cholecystectomy. Correlate with LFTs. 4. The right kidney appears normal. Dictated by Dominick Chan MD @ 05/22/2025 9:18:50 AM (Electronically Signed)
[2025-05-22] MEDS: LACTATED RINGERS 500 ML 500 ML IV (09:43)
[2025-05-22] MEDS: INSULIN ASPART 100 UNIT/ML SUBCUT ×4 (09:49→12:43)
--- NOTE | 2025-05-22 11:38 | PC.NURSE ---
End of shift. pt has been very pleasant. no pain . she is eating, drinking and voiding with no problems/ BS done and insulin was given. She is up ab [facility].
[2025-05-22 12:07] LABS: HCO3 VBG 21 mmol/L (21-28); Lactate* 0.7 mmol/L (0.5-1.9); PCO2 VBG 33 mmHG (40-50); PO2 VBG 51.1 mmHG (25-47); pH VBG 7.406 (7.32-7.43)
[2025-05-22 12:30] LABS: Chloride* 109 mmol/L (96-114); Sodium* 135 mmol/L (135-149)
[2025-05-22 12:31] LABS: Potassium* 4.1 mmol/L (3.6-5.1)
[2025-05-22 12:33] LABS: Blood Urea Nitrogen* 8 mg/dL (7-30); Creatinine* 0.5 mg/dL (0.5-1.5); Est. Creatinine Clearance* 126.01; Estimated Glomerular Filt Rate 114 ml/min
[2025-05-22 12:34] LABS: Anion Gap 6 mEq/L (7-15); Calcium* 8.5 mg/dL (8.4-10.6); Carbon Dioxide* 20 mmol/L (20-32); Glucose* 207 mg/dL (60-115)
--- NOTE | 2025-05-22 14:53 | PC.NURSE ---
Patient was very pleasant and cooperative throughout shift. Vitals are stable, patient reports no pain, afebrile and asymptomatic. Patient was educated on medication, lifestyle changes, activity and disease process. Patient accompanied by parents at discharge 14:49.
--- NOTE | 2025-05-22 14:57 | PM.DS1 ---
DS: Providers Provider Date Seen: 05/22/25 Date of admission: 05/21/25 23:36 Primary care physician: Marco Esquivel MD Admitting Clinician: Corinna Oliveros MD Attending Physician on discharge: Denny Galindo MD Date of Discharge: 05/22/25 DS: Diagnosis Discharge Diagnosis (1) DKA (diabetic ketoacidosis): Status: Acute Problem details: Patient was started on IV fluids at the ED, plan is to give a total of 2 L of bolus IV fluids, increase potassium by giving both oral and IV replacement and then start her on an insulin drip with DKA protocol while giving her maintenance IV fluid (0.45% saline) with potassium at the rate of 250 mL/hour. - POC glucose q.1 hour - BMP Q 2 hours x3 - anion gap metabolic acidosis closed with treatment efforts not requiring insulin drip, only IV fluids and aspart insulin subcutaneously -have yet to determine if patient has diabetes mellitus type 1 versus diabetes mellitus type 2 with ketosis. Ordered C-peptide level, JESUS 65, IA-2, and insulin antibodies, with results to her primary care physician whom she will have follow-up with (2) Diabetes mellitus, new onset: Status: Acute Problem details: - Hb A1c 12.3, TSH 2.1 - once anion gap closes, need to continue the drip for 1-2 hours and then start patient on subcutaneous insulin glargine + order diet for the patient - patient will need to discuss with primary care physician the workup for new onset diabetes including labs to diagnose type 1 versus type 2. Will need a vision exam in addition to controlling her blood sugar optimally with regular followups with PCP (3) Acute hypokalemia: Status: Acute Problem details: Need to replace prior to starting the insulin drip, Per protocol. Insulin if potassium is below 3.4 Call the physician if potassium goes above 5.3 (4) Vasomotor symptoms due to menopause: Status: Acute (5) Hormone replacement therapy (HRT): Status: Acute DS: Summary Hospital Course Hospital Course: Admission history of present illness: ?50 year old female with past medical history of hypothyroidism who presents to the ED C/o fatigue, dry mouth, urinary frequency & blurry vision. Pt doesn't have history of diabetes but today at urgent care blood sugar was 341 with elevated ketones. patient denies fever, abdominal pain and denies history diabetes. At the ED, patient was hemodynamically stable. Labs are showing low potassium at 3.4, anion gap of 19, VBG pH of 7.28, in addition to positive ketones in the urine. Patient was started on IV fluids at the ED, plan is to give a total of 2 L of bolus IV fluids, increase potassium by giving both oral and IV replacement and then start her on an insulin drip with DKA protocol while giving her maintenance IV fluid (0.45% saline) with potassium at the rate of 250 mL/hour. Diabetic ketoacidosis improved substantially over the timeframe that she received treatment in the hospital. PH normalized. Normal lactate. Able to demonstrate ability to monitor own blood sugars and administer her own insulin. Express understanding of follow-up plan. Status at Discharge Functional status at discharge: independent ambulation Overall status at discharge: patient is progressing back to baseline Time Spent with Patient Time attestation: Total time spent providing and/or coordinating discharge services: Time spent: Greater than 30 minutes Exam Narrative: Exam Narrative: GENERAL: Comfortable, no acute distress. No ketones on her breath. HEAD AND NECK: Atraumatic, normocephalic CARDIOVASCULAR: RRR. Normal S1, S2. No murmurs. RESPIRATORY: Clear to auscultation B/L. Good air entry B/L. No wheezes or rhonchi. GASTROINTESTINAL: Not distended, not tender to palpation. NEUROLOGY: Alert, awake, oriented X 3. Normal speech. Independent in transfer, station, gait. PSYCH: Normal mood, normal affect. SKIN: No tenting Const: Vital Signs, click to edit/add: Vital Signs - 24 hr 05/21/25 19:56 05/21/25 22:31 05/21/25 22:44 Temperature 97.1 F L 97.9 F Pulse Rate 74 Pulse Rate [Right Pulse Oximeter] 71 Pulse Rate [Right Radial] Respiratory Rate 20 18 Blood Pressure 129/88 Blood Pressure [Ri ght Arm] Blood Pressure [Ri ght Upper Arm] 170/95 H Pulse Oximetry 99 98 Oxygen Delivery Me thod Room Air 05/22/25 00:05 05/22/25 00:24 05/22/25 00:27 Temperature 97.5 F L 97.5 F L Pulse Rate Pulse Rate [Right Pulse Oximeter] Pulse Rate [Right Radial] 66 66 Respiratory Rate 16 16 16 Blood Pressure Blood Pressure [Ri ght Arm] 141/90 H 141/90 H Blood Pressure [Ri ght Upper Arm] Pulse Oximetry 99 99 99 Oxygen Delivery Me thod Room Air Room Air Room Air 05/22/25 01:06 05/22/25 02:00 05/22/25 02:49 Temperature 98.1 F Pulse Rate 57 L Pulse Rate [Right Pulse Oximeter] Pulse Rate [Right Radial] 68 68 Respiratory Rate 16 16 Blood Pressure Blood Pressure [Ri ght Arm] 119/80 Blood Pressure [Ri ght Upper Arm] Pulse Oximetry 97 Oxygen Delivery Nd thod Room Air 05/22/25 03:42 05/22/25 05:54 05/22/25 07:10 Temperature 97.8 F 97.9 F Pulse Rate 60 Pulse Rate [Right Pulse Oximeter] Pulse Rate [Right Radial] 62 60 Respiratory Rate 16 Blood Pressure Blood Pressure [Ri ght Arm] 112/76 118/76 Blood Pressure [Ri ght Upper Arm] Pulse Oximetry 97 96 Oxygen Delivery Nd thod Room Air Room Air 05/22/25 07:31 05/22/25 11:44 Temperature 97.9 F Pulse Rate Pulse Rate [Right Pulse Oximeter] Pulse Rate [Right Radial] 60 65 Respiratory Rate 16 18 Blood Pressure Blood Pressure [Ri ght Arm] 128/84 Blood Pressure [Ri ght Upper Arm] Pulse Oximetry 96 Oxygen Delivery Nd thod Room Air DS: Data Data Completed and Pending Labs on day of discharge: Labs from last 24 hours 05/22/25 05/22/25 05/22/25 12:03 10:02 08:57 VBG pH 7.406 VBG pCO2 33 L VBG pO2 51.1 H VBG HCO3 21 Sodium 135 Potassium 4.1 Chloride 109 Carbon Dioxide 20 Anion Gap 6 L BUN 8 Creatinine 0.5 Estimated Creat Clear 126.01 Estimated GFR 114 Glucose 207 H Hemoglobin A1c Serum C-Peptide Lactate 0.7 Calcium 8.5 Phosphorus Magnesium Total Bilirubin AST ALT Alkaline Phosphatase Total Protein Albumin Lipase TSH Urine Color Yellow Urine Appearance Clear Urine pH 5.5 Ur Specific [place] 1.010 Urine Protein Negative Urine Glucose (UA) 1+ A Urine Ketones 3+ A Urine Blood Trace-lysed A Urine Nitrite Negative Urine Bilirubin Negative Urine Urobilinogen 0.2 Ur Leukocyte Esterase Negative Urine RBC 0-2 Urine WBC 0-2 Ur Squamous Epith Cells Few Urine Bacteria Few A Urine HCG, Qual Lab Acknowledgement Cancelled 05/22/25 05/22/25 05/22/25 08:19 08:00 07:42 VBG pH 7.302 L VBG pCO2 40 VBG pO2 34.2 VBG HCO3 20 L Sodium Potassium Chloride Carbon Dioxide Anion Gap BUN Creatinine Estimated Creat Clear Estimated GFR Glucose Hemoglobin A1c Serum C-Peptide Lactate Calcium Phosphorus Magnesium Total Bilirubin AST ALT Alkaline Phosphatase Total Protein Albumin Lipase TSH Urine Color Urine Appearance Urine pH Ur Specific [place] Urine Protein Urine Glucose (UA) Urine Ketones Urine Blood Urine Nitrite Urine Bilirubin Urine Urobilinogen Ur Leukocyte Esterase Urine RBC Urine WBC Ur Squamous Epith Cells Urine Bacteria Urine HCG, Qual Lab Acknowledgement New Spec Needed A Test Added 05/22/25 05/22/25 05/22/25 07:10 05:10 03:00 VBG pH VBG pCO2 VBG pO2 VBG HCO3 Sodium 137 136 136 Potassium 4.0 4.2 4.1 Chloride 109 110 110 Carbon Dioxide 19 L 16 L 16 L Anion Gap 9 10 10 BUN 6 L 7 7 Creatinine 0.5 0.5 0.5 Estimated Creat Clear 126.01 126.01 126.01 Estimated GFR 114 114 114 Glucose 184 H 206 H 229 H Hemoglobin A1c Serum C-Peptide Pending Lactate Calcium 8.2 L 7.8 L 7.9 L Phosphorus 2.1 L Magnesium 1.7 Total Bilirubin AST ALT Alkaline Phosphatase Total Protein Albumin 3.7 Lipase TSH Urine Color Urine Appearance Urine pH Ur Specific [place] Urine Protein Urine Glucose (UA) Urine Ketones Urine Blood Urine Nitrite Urine Bilirubin Urine Urobilinogen Ur Leukocyte Esterase Urine RBC Urine WBC Ur Squamous Epith Cells Urine Bacteria Urine HCG, Qual Lab Acknowledgement 05/22/25 05/21/25 05/21/25 01:05 23:10 20:30 VBG pH VBG pCO2 VBG pO2 VBG HCO3 Sodium 136 136 Potassium 4.2 4.1 Chloride 108 107 Carbon Dioxide 16 L 17 L Anion Gap 12 12 BUN 7 9 Creatinine 0.5 0.6 Estimated Creat Clear 126.01 105.01 Estimated GFR 114 109 Glucose 237 H 253 H Hemoglobin A1c 12.3 H Serum C-Peptide Lactate Calcium 8.1 L 8.1 L Phosphorus Cancelled Magnesium 1.7 Total Bilirubin 0.7 AST 30 ALT 23 Alkaline Phosphatase 86 Total Protein 7.7 Albumin 4.8 Lipase 18 L TSH Urine Color Yellow Urine Appearance Clear Urine pH 5.0 Ur Specific [place] <= 1.005 Urine Protein Negative Urine Glucose (UA) 3+ A Urine Ketones 4+ A Urine Blood Negative Urine Nitrite Negative Urine Bilirubin Negative Urine Urobilinogen 0.2 Ur Leukocyte Esterase Negative Urine RBC Urine WBC Ur Squamous Epith Cells Urine Bacteria Urine HCG, Qual Negative Lab Acknowledgement 05/21/25 05/21/25 05/21/25 20:30 20:30 20:30 VBG pH VBG pCO2 VBG pO2 VBG HCO3 Sodium Potassium Chloride Carbon Dioxide Anion Gap BUN Creatinine Estimated Creat Clear Estimated GFR Cancelled Glucose Cancelled 337 H Hemoglobin A1c Serum C-Peptide Lactate 1.1 Calcium Cancelled 9.6 Phosphorus 3.3 Magnesium Total Bilirubin AST ALT Alkaline Phosphatase Total Protein Albumin Lipase TSH Urine Color Urine Appearance Urine pH Ur Specific [place] Urine Protein Urine Glucose (UA) Urine Ketones Urine Blood Urine Nitrite Urine Bilirubin Urine Urobilinogen Ur Leukocyte Esterase Urine RBC Urine WBC Ur Squamous Epith Cells Urine Bacteria Urine HCG, Qual Lab Acknowledgement 05/21/25 05/21/25 05/21/25 20:30 20:30 20:30 VBG pH VBG pCO2 VBG pO2 VBG HCO3 Sodium Potassium Chloride Carbon Dioxide Anion Gap BUN Cancelled Creatinine Cancelled 0.6 Estimated Creat Clear Cancelled 105.01 Estimated GFR 109 Glucose Hemoglobin A1c Serum C-Peptide Lactate Calcium Phosphorus Magnesium Total Bilirubin AST ALT Alkaline Phosphatase Total Protein Albumin Lipase TSH Urine Color Urine Appearance Urine pH Ur Specific [place] Urine Protein Urine Glucose (UA) Urine Ketones Urine Blood Urine Nitrite Urine Bilirubin Urine Urobilinogen Ur Leukocyte Esterase Urine RBC Urine WBC Ur Squamous Epith Cells Urine Bacteria Urine HCG, Qual Lab Acknowledgement 05/21/25 05/21/25 05/21/25 20:30 20:30 20:30 VBG pH VBG pCO2 VBG pO2 VBG HCO3 Sodium Potassium Chloride Cancelled Carbon Dioxide Cancelled 18 L Anion Gap Cancelled 19 H BUN 12 Creatinine Estimated Creat Clear Estimated GFR Glucose Hemoglobin A1c Serum C-Peptide Lactate Calcium Phosphorus Magnesium Total Bilirubin AST ALT Alkaline Phosphatase Total Protein Albumin Lipase TSH Urine Color Urine Appearance Urine pH Ur Specific [place] Urine Protein Urine Glucose (UA) Urine Ketones Urine Blood Urine Nitrite Urine Bilirubin Urine Urobilinogen Ur Leukocyte Esterase Urine RBC Urine WBC Ur Squamous Epith Cells Urine Bacteria Urine HCG, Qual Lab Acknowledgement 05/21/25 05/21/25 05/21/25 20:30 20:30 20:30 VBG pH 7.288 L VBG pCO2 43 VBG pO2 31.3 VBG HCO3 20 L Sodium Cancelled 134 L Potassium Cancelled 3.4 L Chloride 97 Carbon Dioxide Anion Gap BUN Creatinine Estimated Creat Clear Estimated GFR Glucose Hemoglobin A1c Serum C-Peptide Lactate Calcium Phosphorus Magnesium Total Bilirubin AST ALT Alkaline Phosphatase Total Protein Albumin Lipase TSH Urine Color Urine Appearance Urine pH Ur Specific [place] Urine Protein Urine Glucose (UA) Urine Ketones Urine Blood Urine Nitrite Urine Bilirubin Urine Urobilinogen Ur Leukocyte Esterase Urine RBC Urine WBC Ur Squamous Epith Cells Urine Bacteria Urine HCG, Qual Lab Acknowledgement 05/20/25 Unknown VBG pH VBG pCO2 VBG pO2 VBG HCO3 Sodium Potassium Chloride Carbon Dioxide Anion Gap BUN Creatinine Estimated Creat Clear Estimated GFR Glucose Hemoglobin A1c Serum C-Peptide Lactate Calcium Phosphorus Magnesium Total Bilirubin AST ALT Alkaline Phosphatase Total Protein Albumin Lipase TSH 2.110 Urine Color Urine Appearance Urine pH Ur Specific [place] Urine Protein Urine Glucose (UA) Urine Ketones Urine Blood Urine Nitrite Urine Bilirubin Urine Urobilinogen Ur Leukocyte Esterase Urine RBC Urine WBC Ur Squamous Epith Cells Urine Bacteria Urine HCG, Qual Lab Acknowledgement Discharge Plan Discharge Disposition: Home, Self-Care Date of Admission: 05/21/25 23:36 Attending Provider on Discharge: Denny Galindo Primary Care Provider: Marco Esquivel Condition: Improved Anticipated Discharge Date/Time: 05/22/25 15:00 Discharge Medications: New insulin aspart U-100 [Novolog FlexPen U-100 Insulin] 100 unit/mL (3 mL) insulin pen 4 unit subcut TID Qty: 15 2RF Rx Instructions: Take with meals. Additional sliding scale: BS less than 150 mg/dl, 0 units BS 151-200 mg/dl, 2 units BS 201-250 mg/dl, 4 units BS 251-300 mg/dl, 6 units BS 301-350 mg/dl, 8 units BS 351-400 mg/dl, 10 units BS greater than 400 mg/dl, 12 units, recheck in 2 hours, and call for help insulin glargine [Lantus Solostar U-100 Insulin] 100 unit/mL (3 mL) insulin pen 18 unit subcut QPM Qty: 15 2RF Glucagon Emergency Kit (human) 1 mg recon soln 1 mg subcut Q20M PRN (Reason: hypoglycemia) Qty: 1 1RF Rx Instructions: until target blood sugar attained, greater than 100 mg/dl Continued estradiol-norethindrone acet 0.05-0.14 mg/24 hr patch semiweekly 1 patch transdermal 2XW Qty: 8 5RF Rx Instructions: apply 1 patch every 3 days alternating with 1 patch every 4 days doxycycline hyclate 100 mg capsule 100 mg PO DAILY multivitamin [Daily Multi-Vitamin] Tablet 1 tab PO DAILY NewFlora 10 billion cell capsule 10,000 mmu cells PO DAILY Emergen-C 500 mg tablet,chewable 1 tab PO DAILY levothyroxine 25 mcg tablet 25 mcg PO 2XW Rx Instructions: Takes and Tuesday only in addition to the 150 mcg dose. levothyroxine 150 mcg tablet 150 mcg PO QDAY Qty: 90 3RF Discharge Orders: Discharge Order (Routine); Ordered 05/22/25 Ordered By: Denny Galindo Patient Education: Glucagon (By injection), Insulin Aspart, Recombinant (By injection), Insulin Glargine (By injection), Type 1 Diabetes in Adults: New Diagnosis (DC), Hypoglycemia in a Person with Diabetes (DC), Type 2 Diabetes in Adults: New Diagnosis (GEN), What to Do if Your Blood Sugar is Low (DC), Diabetes and Exercise (DC) Additional Instructions: 1. 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 Follow-up with Dr. Esquivel in 7-14 days 3. May return to work without restrictions on Tuesday05/24/2027 Activity Level: No Restrictions Discharge Diet: Diabetic Follow Up Appointments: Marco Esquivel MD [Primary Care Provider, Family Practice] - 06/03/25 2:15 pm Referral Note: [facility] for hospital follow-up. Forms: Patient Belongings, [facility] Info Instructions
[2025-05-24 01:24] LABS: C-Peptide, Serum or Plasma 0.6 ng/mL (0.5-3.3)
== END 2025-05-22 14:49 | disposition home or self-care (01) | DRG 420 ==
LOC: ED 21:52 → MEDSURG 05-22 06:13
PROVIDERS: Internal Medicine; Admitting Provider Student in an Organized Health Care Education/Training Program; Emergency Provider Emergency Medicine; PCP Family Medicine; Visit Provider Student in an Organized Health Care Education/Training Program
DX: E11.10 Type 2 diabetes mellitus with ketoacidosis without coma (principal); E87.6 Hypokalemia; E11.65 Type 2 diabetes mellitus with hyperglycemia; E03.9 Hypothyroidism, unspecified; N95.1 Menopausal and female climacteric states
CPT/HCPCS: 36415; 76705; 80048; 80053; 81001; 81003; 81025; 82040; 82803; 82962; 83036; 83605; 83690; 83735; 84100; 84443; 84681; 84702; 87086; 93005; 99285; A9270; J1815; J3480; J7030; J7120